=== PATIENT | male | born 1960 | race Caucasian/White ===

== ENCOUNTER 2018-11-21 09:06 | Emergency (ER) | payer MEDICAID ==
[~2018-11-21] VITALS: Ht 185.4 cm; Wt 108.9 kg
[2018-11-21] MEDS ORDERED: FUROSEMIDE 20 MG/2 ML VIAL IVP ONE (09:30)
[2018-11-21] MEDS ORDERED: CEFTRIAXONE 2 G in IV DEXTROSE 5% 100 ML IV ONE (09:30)
[2018-11-21] MEDS ORDERED: FURO40TA5 PO (09:33)
[2018-11-21] MEDS ORDERED: LISI-603 PO (09:33)
[2018-11-21] MEDS ORDERED: TRIA1CAP6 PO (09:33)
[2018-11-21] MEDS ORDERED: ALBU8.5H8 INH (09:33)
[2018-11-21] MEDS ORDERED: POTA20TA10 PO (09:33)
[2018-11-21] MEDS ORDERED: CEFTRIAXONE 1 G VIAL ONE (09:41)
[2018-11-21] MEDS ORDERED: FUROSEMIDE 40 MG/4 ML VIAL ONE (09:42)
[2018-11-21 09:48] LABS: CREATININE 0.9 mg/dL (0.6-1.3); POTASSIUM 3.8 mmol/L (3.5-5.1)
[2018-11-21 09:51] LABS: HEMOGLOBIN 12.2 g/dL (12.5-16.3); RED BLOOD CELL COUNT(AUTO) 4.09 MIL/uL (4.06-5.63); WHITE BLOOD COUNT (AUTO) 6.1 K/uL (3.6-10.2)
[2018-11-21 09:52] LABS: BASOPHILS # (AUTO) 0.1 K/uL (0.0-8.0); EOSINOPHILS # (AUTO) 0.2 K/uL (0.0-0.7); EOSINOPHILS % (AUTO) 3.3 % (0.0-7.0); HEMATOCRIT 36.5 % (36.7-47.1); LYMPHOCYTES # (AUTO) 1.8 K/uL (20.0-40.0); LYMPHOCYTES % (AUTO) 29.1 % (20.5-51.5); MEAN CORPUSCULAR HEMOGLOBIN 29.7 uug (23.8-33.4); MEAN CORPUSCULAR HGB CONC 33 g/dL (32.5-36.3); MEAN CORPUSCULAR VOLUME 89.3 fL (73.0-96.2); MONOCYTES # (AUTO) 0.6 K/uL (2.0-10.0); MONOCYTES % (AUTO) 10.2 % (0.0-11.0); NEUTROPHILS # (AUTO) 3.5 K/uL (1.8-8.9); NEUTROPHILS % (AUTO) 56.4 % (38.5-71.5); PLATELET COUNT (AUTO) 272 K/uL (152-348)
--- NOTE | 2018-11-21 10:36 | NUR ---
Patient discharged to home in stable conditon. Written and verbal after care instructions given. Patient verbalizes understanding of instructions.pt walks in steady gait.
[2018-11-21 11:16] VITALS: BP 164/89
== END 2018-11-21 11:17 | disposition home or self-care (01) ==
LOC: ER 09:06
DX: L03.115 Cellulitis of right lower limb (principal); L03.116 Cellulitis of left lower limb; I89.0 Lymphedema, not elsewhere classified; I11.0 Hypertensive heart disease with heart failure; I50.9 Heart failure, unspecified; I25.10 Atherosclerotic heart disease of native coronary artery without angina pectoris; J44.9 Chronic obstructive pulmonary disease, unspecified; F17.200 Nicotine dependence, unspecified, uncomplicated; Z79.899 Other long term (current) drug therapy
CPT/HCPCS: 36415; 71045; 80048; 83880; 84484; 85025; 93005; 96365; 96375; 99284; J0696; J1940; J7060; 70030-TC; A4663

== ENCOUNTER 2019-04-22 22:48 | Inpatient (IN) | payer MEDICAID ==
[~2019-04-22] VITALS: Ht 188 cm; Wt 117.9 kg
[~2019-04-22 22:48] MED LIST: ALBU8.5H8 INH; FURO40TA5 PO; LISI-603 PO; POTA20TA10 PO; TRIA1CAP6 PO
[2019-04-22] MEDS ORDERED: FUROSEMIDE 20 MG TABLET ONE (23:15)
[2019-04-22] MEDS ORDERED: predniSONE 20 MG TABLET ONE (23:15)
[2019-04-22] MEDS ORDERED: predniSONE 10 MG TABLET PO ONE (23:15)
[2019-04-22] MEDS ORDERED: HYDROCODONE/APAP 10-325 MG TABLET PO ONE (23:15)
[2019-04-22] MEDS ORDERED: ALBUTEROL SULFATE 2.5 MG/3 ML NEBU NEB ONE (23:15)
[2019-04-22] MEDS ORDERED: HYDROCODONE/APAP 10-325 MG TABLET ONE (23:15)
[2019-04-22] MEDS ORDERED: FUROSEMIDE 20 MG TABLET PO ONE (23:15)
[2019-04-22] MEDS ORDERED: IPRATROPIUM BROMIDE 0.5 MG/2.5 ML NEBU NEB ONE (23:15)
[2019-04-22] MEDS ORDERED: ALBUTEROL SULFATE 2.5 MG/3 ML NEBU ONE (23:23)
[2019-04-22] MEDS ORDERED: IPRATROPIUM BROMIDE 0.5 MG/2.5 ML NEBU ONE (23:23)
[2019-04-22 23:39] LABS: BASOPHILS # (AUTO) 0.1 K/uL (0.0-8.0); BASOPHILS % (AUTO) 0.6 % (0.0-2.0); EOSINOPHILS % (AUTO) 0.3 % (0.0-7.0); HEMATOCRIT 41.4 % (36.7-47.1); HEMOGLOBIN 13.3 g/dL (12.5-16.3); LYMPHOCYTES # (AUTO) 1.3 K/uL (20.0-40.0); LYMPHOCYTES % (AUTO) 10.5 % (20.5-51.5); MEAN CORPUSCULAR HEMOGLOBIN 28.4 uug (23.8-33.4); MEAN CORPUSCULAR HGB CONC 32 g/dL (32.5-36.3); MEAN CORPUSCULAR VOLUME 88.1 fL (73.0-96.2); MONOCYTES # (AUTO) 1.4 K/uL (2.0-10.0); MONOCYTES % (AUTO) 11.1 % (0.0-11.0); NEUTROPHILS # (AUTO) 9.5 K/uL (1.8-8.9); NEUTROPHILS % (AUTO) 77.5 % (38.5-71.5); PLATELET COUNT (AUTO) 243 K/uL (152-348); WHITE BLOOD COUNT (AUTO) 12.2 K/uL (3.6-10.2)
[2019-04-22 23:52] LABS: CREATININE 0.9 mg/dL (0.6-1.3); POTASSIUM 3.9 mmol/L (3.5-5.1)
[2019-04-23] MEDS ORDERED: PENICILLIN G BENZATHINE 2.4 MMU/4 ML DISP.SYRIN IM ONE ×2 (00:01)
[2019-04-23 00:05] LABS: BILIRUBIN,DIRECT 0.2 mg/dL (0.0-0.2); BILIRUBIN,TOTAL 0.8 mg/dL (0.2-1.0); TOTAL PROTEIN, SERUM 6.7 g/dL (6.4-8.2)
[2019-04-23] MEDS ORDERED: IOHEXOL 350 100 ML INFUS..BTL ONE (00:14)
[2019-04-23] MEDS ORDERED: IV NORMAL SALINE 250 ML IV ONE (00:14)
[2019-04-23] MEDS ORDERED: SWABABLE VALVE TRANSFER SET EA MC ONE (00:15)
[2019-04-23] MEDS ORDERED: NITROGLYCERIN OINT 1 GM PACKET TP ONE ×2 (00:30→01:02)
[2019-04-23] MEDS ORDERED: ASPIRIN 81 MG TAB.CHEW PO ONE (00:30)
--- NOTE | 2019-04-23 00:44 | NUR ---
Dr. Schneider spoke with Yury Carlisle on telephone. Pt. admitted to Telemetry, under care of Yury Carlisle DNP. Belongs List completed.
[2019-04-23] MEDS ORDERED: ASPIRIN 81 MG TAB.CHEW ONE (01:02)
--- NOTE | 2019-04-23 01:25 | NUR ---
Report given to inpatient nurse.
[2019-04-23 02:00] VITALS: BP 139/80
[2019-04-23] MEDS ORDERED: Z GUARD REMEDY PASTE 57 GM TUBE TOP PRN (02:00)
[2019-04-23] MEDS ORDERED: ONDANSETRON 4 MG/2 ML VIAL IV PRN (02:00)
[2019-04-23] MEDS ORDERED: MAGNESIUM HYDROXIDE 30 ML LIQUID UDC PO PRN (02:00)
--- NOTE | 2019-04-23 04:48 | NUR ---
report received from ER. belongings list completed and signed. admissions process complete. v/s stable and and no signs of acute distress throughout shift. safety and comfort measures provided. bed in lowest position, side rails upx2, bed alarm on. will continue to monitor and endorse accordingly to morning nurse.
[2019-04-23 04:57] VITALS: BP 151/87
[2019-04-23] MEDS: HYDROCODONE/APAP 5-325MG TABLET PO PRN ×3 (06:34→23:05)
--- NOTE | 2019-04-23 06:37 | NUR ---
Dr. Carlisle contacted for updated status reported from patient regarding current substance abuse withdrawal. no new orders at this time. patient is NSR on tele. v/s stable. o2 sat 93% on 4L NC. will continue to monitor. norco administered for c/o of pain and tolerated well.
[2019-04-23] MEDS: predniSONE 20 MG TABLET PO SCH (08:11)
[2019-04-23] MEDS: ASPIRIN EC 81 MG TABLET.DR PO SCH (08:11)
[2019-04-23] MEDS: ENOXAPARIN SODIUM 40 MG/0.4 ML DISP.SYRIN SQ SCH (08:13)
[2019-04-23] MEDS: NICOTINE 14 MG/24HR PATCH TD SCH (08:13)
[2019-04-23] MEDS ORDERED: FUROSEMIDE 40 MG/4 ML VIAL IV SCH (09:00)
[2019-04-23] MEDS: CARVEDILOL 6.25 MG TABLET PO SCH ×2 (13:26→18:44)
--- NOTE | 2019-04-23 13:47 | NUR ---
Clinical Pharmacy Note: Vancomycin Dosing per Pharmacy Subjective: Vancomycin IV to start on this 58 yo male patient for cellulitis Objective: BUN 15/Scr 0.9 WBC 12.2 Temperature 98.1 ht 188 cm wt 122 kg Assessment/Plan: Will start vancomycin 2000mg IVPB Q11hr for a predicted vancomycin steady state trough level of 16 mcg/ml. 1st dose today at 1500. Will draw a vancomycin trough level prior to the 4th dose of vancomycin (not ordered yet). Will monitor renal function and adjust vancomycin dose, if needed, should renal function change significantly. Will follow daily.
[2019-04-23 13:49] LABS: CREATININE 0.8 mg/dL (0.6-1.3); MAGNESIUM 1.7 mg/dL (1.8-2.4); POTASSIUM 3.4 mmol/L (3.5-5.1)
[2019-04-23] MEDS ORDERED: ENOXAPARIN SODIUM 40 MG/0.4 ML DISP.SYRIN SQ SCH (14:15)
[2019-04-23] MEDS ORDERED: METHADONE HCL 10 MG TABLET PO SCH (14:15)
[2019-04-23] MEDS: METHADONE HCL 10 MG TABLET PO SCH (15:42)
[2019-04-23] MEDS: VANCOMYCIN IV 2,000 MG in IV DEXTROSE 5% 500 ML IV SCH (15:42)
--- NOTE | 2019-04-23 17:47 | NUR ---
Patient in bed with signs of discomfort as he admitted to with heroine withdraw to night time nurse; patient will continue to be monitored.
--- NOTE | 2019-04-23 18:16 | NUR ---
Patient with discomfort through out shift due to expressing going through heroine withdraw; Md placed orders for methadone for withdraw symptoms; patient medication compliant ; patient with stable vital signs. Report given oncoming nurse.
--- NOTE | 2019-04-23 19:30 | NUR ---
RECEIVED PT AWAKE, ALERT AND ORIENTEDX3. PT SHOWS N SIGNS OF ACUTE DISTRESS. IV INTACT. SAFETY AND COMFORT PROVIDED. WILL CONTINUE TO MONITOR.
[2019-04-23 20:00] VITALS: BP 148/89
[2019-04-23] MEDS: ACETAMINOPHEN 325 MG TABLET PO PRN (20:10)
[2019-04-23] MEDS: ATORVASTATIN 40 MG TABLET PO SCH (20:10)
[2019-04-23] MEDS: ALBUTEROL SULFATE 2.5 MG/3 ML NEBU NEB PRN (22:47)
[2019-04-23] MEDS: IPRATROPIUM BROMIDE 0.5 MG/2.5 ML NEBU NEB PRN (22:47)
[2019-04-23] MEDS ORDERED: LORAZEPAM 2 MG/1 ML VIAL IV PRN (23:45)
[2019-04-24 00:04] VITALS: BP 142/75
[2019-04-24] MEDS: VANCOMYCIN IV 2,000 MG in IV DEXTROSE 5% 500 ML IV SCH ×2 (01:02→13:48)
[2019-04-24 04:54] VITALS: BP 151/82
[2019-04-24 06:47] LABS: BILIRUBIN,TOTAL 0.5 mg/dL (0.2-1.0); CREATININE 0.7 mg/dL (0.6-1.3); PHOSPHOROUS 3.7 mg/dL (2.5-4.9); POTASSIUM 3.6 mmol/L (3.5-5.1)
[2019-04-24 06:52] LABS: BASOPHILS % (AUTO) 0.3 % (0.0-2.0); EOSINOPHILS % (AUTO) 0.4 % (0.0-7.0); HEMATOCRIT 43.3 % (36.7-47.1); HEMOGLOBIN 13.9 g/dL (12.5-16.3); LYMPHOCYTES # (AUTO) 1.3 K/uL (20.0-40.0); MEAN CORPUSCULAR HEMOGLOBIN 28.4 uug (23.8-33.4); MEAN CORPUSCULAR HGB CONC 32 g/dL (32.5-36.3); MEAN CORPUSCULAR VOLUME 88.7 fL (73.0-96.2); MONOCYTES # (AUTO) 1.2 K/uL (2.0-10.0); MONOCYTES % (AUTO) 10.7 % (0.0-11.0); NEUTROPHILS # (AUTO) 8.9 K/uL (1.8-8.9); NEUTROPHILS % (AUTO) 77.6 % (38.5-71.5); PLATELET COUNT (AUTO) 270 K/uL (152-348); RED BLOOD CELL COUNT(AUTO) 4.89 MIL/uL (4.06-5.63); WHITE BLOOD COUNT (AUTO) 11.4 K/uL (3.6-10.2)
[2019-04-24 06:55] LABS: THYROID STIMULATING HORMONE 1.01 mIU/mL (0.358-3.740)
--- NOTE | 2019-04-24 07:12 | NUR ---
2341H [employer] ORDERED ATIVAN 1MG ONETIME PRN FOR PT. PT AGITATED, SCREAMING AND WAS RESTLESS. PT SLEPT INTERMITTENTLY. PT SHOWS NO SIGNS OF RESPIRATORY DISTRESS. PT IV INTACT. SAFETY AND COMFORT PROVIDED. WILL ENDORSE TO INCOMING NURSE FOR CONTINUITY OF CARE.
--- NOTE | 2019-04-24 07:30 | NUR ---
Patient mildly agitated ;b patient otherwise stable ; patient will continue to be monitored.
--- NOTE | 2019-04-24 07:43 | NUR ---
Clinical Pharmacy Note: Vancomycin Dosing per Pharmacy Subjective: Vancomycin IV to continue on this 58 yo male patient for cellulitis Objective: BUN 20/Scr 0.7 WBC 11.4 Temperature 98.4 ht 188 cm wt 122 kg Assessment/Plan: Will continue same dose of vancomycin 2000mg IVPB Q11hr for a predicted vancomycin steady state trough level of 16 mcg/ml. 3rd dose today at 1300. Will draw a vancomycin trough level prior to the 4th dose of vancomycin (ordered for today at 2330- Rn has been informed to hold midnight dose if vanco trough level above 20 mcg/ml). Pharmacy shall review the level in am & adjust the dose if needed. Will follow daily.
[2019-04-24] MEDS: ASPIRIN EC 81 MG TABLET.DR PO SCH (08:15)
[2019-04-24] MEDS: CARVEDILOL 6.25 MG TABLET PO SCH ×2 (08:16→17:31)
[2019-04-24] MEDS: METHADONE HCL 10 MG TABLET PO SCH (08:17)
[2019-04-24] MEDS: predniSONE 20 MG TABLET PO SCH (08:18)
[2019-04-24] MEDS: ENOXAPARIN SODIUM 40 MG/0.4 ML DISP.SYRIN SQ SCH (08:19)
[2019-04-24] MEDS: NICOTINE 14 MG/24HR PATCH TD SCH (08:20)
[2019-04-24] MEDS ORDERED: FUROSEMIDE 40 MG TABLET PO SCH (09:00)
[2019-04-24] MEDS ORDERED: FUROSEMIDE 40 MG/4 ML VIAL IV SCH (09:00)
[2019-04-24] MEDS: POTASSIUM CHLORIDE 50 ML IV SCH ×2 (09:53→11:46)
[2019-04-24] MEDS: LOSARTAN POTASSIUM 50 MG TABLET PO SCH (09:54)
[2019-04-24 16:31] LABS: *BILIRUBIN,URIN NEGATIVE (NEGATIVE); *CLARITY,URINE CLEAR (CLEAR); *COLOR,URINE YELLOW (YELLOW); *KETONES,URINE NEGATIVE (NEGATIVE); *UROBILINOGEN,URINE 0.2 E.U./dl (NORMAL); LEUKOCYTE ESTERASE ,URINE NEGATIVE (NEGATIVE); NITRITE, URINE NEGATIVE (NEGATIVE); UGLUCOSE NEGATIVE (NEGATIVE)
[2019-04-24 16:36] LABS: *BLOOD, URINE TRACE (NEGATIVE)
[2019-04-24 16:49] LABS: BACTERIA,URINE NONE SEEN /HPF (NONE SEEN); SQUAMOUS EPITHELIAL CELL,UR FEW /HPF (NONE SEEN); WBC,URINE 0-3 /HPF (0-3)
--- NOTE | 2019-04-24 18:43 | NUR ---
Patient with random bouts of agitation through out shift ; patient medication compliant ; Patient redirected through out shift; patient with compliants of "feeling like he is dying". Life vest office machines sales representative visited patient; Report given to oncoming nurse.
[2019-04-24 20:21] VITALS: BP 164/111
[2019-04-24] MEDS: FUROSEMIDE 40 MG/4 ML VIAL IV SCH (20:29)
[2019-04-24] MEDS: ATORVASTATIN 40 MG TABLET PO SCH (20:29)
--- NOTE | 2019-04-24 20:30 | NUR ---
Patient frequently wets himself with urine because of Lasix injection every 12 hours, spoke with Russ Gonzalez NP who ordered to place condom catheter on patient.
[2019-04-24] MEDS: LORAZEPAM 2 MG/1 ML VIAL IV PRN (20:59)
[2019-04-25 00:09] VITALS: BP 164/106
--- NOTE | 2019-04-25 00:20 | NUR ---
Telephone call to Dr Teague, informed of patient current BP 164/106. History given. Dr Teague with order to start patient on Hydralazine 25mg PO q3 hours PRN for SBP greater than 150. Order read back and verified. Will carry out order.
[2019-04-25] MEDS: VANCOMYCIN IV 2,000 MG in IV DEXTROSE 5% 500 ML IV SCH ×3 (00:27→21:04)
[2019-04-25] MEDS: hydrALAZINE HCL 25 MG TABLET PO PRN ×2 (00:38→04:07)
[2019-04-25] MEDS: ZOLPIDEM 5 MG TABLET PO PRN (00:38)
[2019-04-25] MEDS: ALBUTEROL SULFATE 2.5 MG/3 ML NEBU NEB PRN (01:37)
[2019-04-25] MEDS: IPRATROPIUM BROMIDE 0.5 MG/2.5 ML NEBU NEB PRN (01:37)
--- NOTE | 2019-04-25 02:11 | NUR ---
Started another IV line on right hand #22G as patient keeps on bending right AC area and interfering with IV flow. COntinued IB ABX on right hand IV site.
--- NOTE | 2019-04-25 03:35 | NUR ---
Patient pulled out condom catheter x2. Able to use urinal. Will keep condom catheter off.
[2019-04-25 04:03] VITALS: BP 169/110
--- NOTE | 2019-04-25 04:32 | NUR ---
Pulled out IV on right hand. Right AC IV remains intact.
--- NOTE | 2019-04-25 05:53 | NUR ---
Patient asleep at this time. On O2 at 2LPM via NC in place. O2 sat at 97%. NSR on tele at 88/min, with frequent multiform PVC. Had episode V tach 6 beat non sustaining x3 the whole shift. IV site on right AC intact and patent. No adverse reaction noted from IV ABX. Safety measure maintained and call valdivia within reach.
[2019-04-25 06:30] LABS: CREATININE 0.8 mg/dL (0.6-1.3); POTASSIUM 3.3 mmol/L (3.5-5.1)
[2019-04-25 06:31] LABS: MAGNESIUM 1.8 mg/dL (1.8-2.4); PHOSPHOROUS 3.9 mg/dL (2.5-4.9)
[2019-04-25 06:34] LABS: BASOPHILS % (AUTO) 0.3 % (0.0-2.0); EOSINOPHILS # (AUTO) 0.1 K/uL (0.0-0.7); EOSINOPHILS % (AUTO) 0.5 % (0.0-7.0); HEMATOCRIT 44.2 % (36.7-47.1); HEMOGLOBIN 14.3 g/dL (12.5-16.3); LYMPHOCYTES # (AUTO) 1.3 K/uL (20.0-40.0); LYMPHOCYTES % (AUTO) 11.9 % (20.5-51.5); MEAN CORPUSCULAR HEMOGLOBIN 28.1 uug (23.8-33.4); MEAN CORPUSCULAR HGB CONC 33 g/dL (32.5-36.3); MEAN CORPUSCULAR VOLUME 86.5 fL (73.0-96.2); MONOCYTES # (AUTO) 1.2 K/uL (2.0-10.0); NEUTROPHILS # (AUTO) 8.7 K/uL (1.8-8.9); NEUTROPHILS % (AUTO) 76.3 % (38.5-71.5); PLATELET COUNT (AUTO) 338 K/uL (152-348); WHITE BLOOD COUNT (AUTO) 11.3 K/uL (3.6-10.2)
--- NOTE | 2019-04-25 06:44 | NUR ---
Telephone call from medical lab technologist Bhavesh, reported critical CO2 of 40. Will notify MD and have day shift RN follow up.
--- NOTE | 2019-04-25 08:00 | NUR ---
received alert and oriented x 3, states wants something for pain and wants to sleep, feels tired, placed on 1.5 L/nc 02, tele- SR with PVCs, explained plan of care- verbalized understanding, took routine meds without any problem, call light within reach, safety measures maintained
[2019-04-25] MEDS: ASPIRIN EC 81 MG TABLET.DR PO SCH (08:07)
[2019-04-25] MEDS: LOSARTAN POTASSIUM 50 MG TABLET PO SCH ×2 (08:08→17:08)
[2019-04-25] MEDS: NICOTINE 14 MG/24HR PATCH TD SCH (08:08)
[2019-04-25] MEDS: METHADONE HCL 10 MG TABLET PO SCH (08:08)
[2019-04-25] MEDS: ENOXAPARIN SODIUM 40 MG/0.4 ML DISP.SYRIN SQ SCH (08:09)
[2019-04-25] MEDS: FUROSEMIDE 40 MG/4 ML VIAL IV SCH (08:10)
[2019-04-25] MEDS: predniSONE 20 MG TABLET PO SCH (08:10)
[2019-04-25] MEDS: CARVEDILOL 6.25 MG TABLET PO SCH (08:11)
--- NOTE | 2019-04-25 09:28 | NUR ---
Clinical Pharmacy Note: Vancomycin Dosing per Pharmacy Subjective: Vancomycin IV to continue on this 58 yo male patient for cellulitis Objective: BUN 19/Scr 0.8 WBC 11.3 Temperature 98.6 Vanco trough level; 15.9 (on 03/25 at 2330) ht 188 cm wt 122 kg Assessment/Plan: Since vanco trough level is within therapeutic range, will continue same dose of vancomycin 2000mg IVPB Q11hr for today. Will monitor renal function & adjust the dose if needed. Will follow daily.
[2019-04-25] MEDS ORDERED: POTASSIUM CHLORIDE 20 MEQ TAB.PRT.SR PO ONE (11:15)
[2019-04-25 12:00] VITALS: BP 150/98
[2019-04-25 12:10] LABS: ABG HCO3 39.5 mmol/L; ABG PCO2 62.1 mmHg (35.0-45.0); ABG PH 7.421 (7.350-7.450); ABG PO2 65.7 mmHg (75.0-100.0); ABG SITE LEFT RADIAL; ABG TOTAL HEMOGLOBIN 15.3 G/dL (13.5-18.0); COHb 1.8 % (0.5-1.5); MetHb 0.2 % (0.0-1.5); O2Hb 91.3 % (94.0-97.0); VENT MODE Nasal Cannula
--- NOTE | 2019-04-25 15:24 | NUR ---
PATIENT REFUSED BI-PAP, PLACED ON 2L NC BY RT SATURATING 95%. NO ACUTE DISTRESS, SR WITH MULTIPLE PVCS. NO RUNS OF V-TACH SINCE CHANGE OF SHIFT
[2019-04-25] MEDS ORDERED: POTASSIUM CHLORIDE 20 MEQ TAB.PRT.SR PO SCH (16:30)
[2019-04-25 16:46] VITALS: BP 152/72
[2019-04-25] MEDS: CARVEDILOL 12.5 MG TABLET PO SCH (17:07)
[2019-04-25] MEDS: BUMETANIDE 1 MG TABLET PO SCH (17:07)
[2019-04-25] MEDS ORDERED: CARVEDILOL 6.25 MG TABLET PO SCH (18:00)
[2019-04-25 20:00] VITALS: BP 136/82
--- NOTE | 2019-04-25 20:00 | NUR ---
Received patient lying in bed. AAOx2-3. Able to make needs known. Denies any SOB. On o2 at 2LPM via NC in place. Per day shift patient taking off BIPAP when being placed. BIPAP off at this time. O2 sat at 95%. NSR on tele with frequent PVC's and had 1 episode of V tach 4 beats but non sustaining. IV site on right AC intact and patent. Complained of generalized pain. Will provide [place] per order. Reposition for comfort. Continue to monitor.
[2019-04-25] MEDS: ATORVASTATIN 40 MG TABLET PO SCH (20:28)
[2019-04-25] MEDS: HYDROCODONE/APAP 5-325MG TABLET PO PRN (20:28)
[2019-04-25 20:31] VITALS: BP 138/82
--- NOTE | 2019-04-25 21:30 | NUR ---
RT place patient on BIPAP with setting of 14, 10/5, 30%. Patient unable to tolerate 14/5 per RT Tate.
[2019-04-26] VITALS (10 sets, daily range): BP systolic 141–185; BP diastolic 81–109
--- NOTE | 2019-04-26 | NUR ---
Patient woke up from sleep and started getting anxious removed his BIPAP and refusing to have it put back on. Will give Lorazepam per order for anxiety. We'll leave of BIPAP at this time as patient continue to refuse it. On O2 at 2LPM via NC in place. O2 sat at 96% at this time.
[2019-04-26] MEDS: LORAZEPAM 2 MG/1 ML VIAL IV PRN (00:04)
[2019-04-26] MEDS: hydrALAZINE HCL 25 MG TABLET PO PRN (03:56)
--- NOTE | 2019-04-26 05:45 | NUR ---
BP down from 185/109 to 156/82.
--- NOTE | 2019-04-26 06:05 | NUR ---
AAOx2-3. Denies any SOB. On o2 at 2LPM via NC in place. O2 sat at 95%. Kept BIPAP for about 2.5 hours during the night. NSR on tele at 87/min with frequent multiform PVC's and occasional PAC's. IV site on right AC intact and patent.Safety measure maintained and call valdivia within reached.
[2019-04-26 06:32] LABS: BASOPHILS % (AUTO) 0.5 % (0.0-2.0); EOSINOPHILS # (AUTO) 0.1 K/uL (0.0-0.7); EOSINOPHILS % (AUTO) 1.4 % (0.0-7.0); LYMPHOCYTES # (AUTO) 1.8 K/uL (20.0-40.0); LYMPHOCYTES % (AUTO) 18.1 % (20.5-51.5); MEAN CORPUSCULAR HEMOGLOBIN 28.6 uug (23.8-33.4); MEAN CORPUSCULAR HGB CONC 33 g/dL (32.5-36.3); MEAN CORPUSCULAR VOLUME 87.6 fL (73.0-96.2); MONOCYTES # (AUTO) 1.4 K/uL (2.0-10.0); MONOCYTES % (AUTO) 14.3 % (0.0-11.0); NEUTROPHILS # (AUTO) 6.6 K/uL (1.8-8.9); NEUTROPHILS % (AUTO) 65.7 % (38.5-71.5); PLATELET COUNT (AUTO) 303 K/uL (152-348); RED BLOOD CELL COUNT(AUTO) 5.25 MIL/uL (4.06-5.63); WHITE BLOOD COUNT (AUTO) 10.1 K/uL (3.6-10.2)
[2019-04-26 06:37] LABS: CREATININE 0.7 mg/dL (0.6-1.3); MAGNESIUM 1.7 mg/dL (1.8-2.4); PHOSPHOROUS 3.9 mg/dL (2.5-4.9); POTASSIUM 2.9 mmol/L (3.5-5.1)
[2019-04-26] MEDS: CARVEDILOL 12.5 MG TABLET PO SCH ×2 (06:45→16:49)
--- NOTE | 2019-04-26 07:30 | NUR ---
SBAR REPORT RECEIVED, PT.SLEEPY, NO S/S OF ACUTE DISTRESS.
[2019-04-26] MEDS ORDERED: POTASSIUM CHLORIDE 20 MEQ TAB.PRT.SR PO ONE (08:00)
[2019-04-26 08:02] LABS: ABG BASE EXCESS 8.3 mmol/L; ABG HCO3 34.5 mmol/L; ABG PCO2 53.6 mmHg (35.0-45.0); ABG PH 7.427 (7.350-7.450); ABG PO2 60.1 mmHg (75.0-100.0); ABG SITE RIGHT RADIAL; ABG TOTAL HEMOGLOBIN 15.5 G/dL (13.5-18.0); COHb 1.9 % (0.5-1.5); MetHb 0.3 % (0.0-1.5); O2Hb 88.7 % (94.0-97.0); VENT MODE Nasal Cannula 1L
[2019-04-26] MEDS: predniSONE 20 MG TABLET PO SCH (08:22)
[2019-04-26] MEDS: BUMETANIDE 1 MG TABLET PO SCH ×2 (08:23→16:06)
[2019-04-26] MEDS: LOSARTAN POTASSIUM 50 MG TABLET PO SCH ×2 (08:23→16:06)
[2019-04-26] MEDS: METHADONE HCL 10 MG TABLET PO SCH (08:23)
[2019-04-26] MEDS: NICOTINE 14 MG/24HR PATCH TD SCH (08:24)
[2019-04-26] MEDS: ASPIRIN EC 81 MG TABLET.DR PO SCH (08:24)
[2019-04-26] MEDS: ENOXAPARIN SODIUM 40 MG/0.4 ML DISP.SYRIN SQ SCH (08:25)
[2019-04-26] MEDS: VANCOMYCIN IV 2,000 MG in IV DEXTROSE 5% 500 ML IV SCH ×2 (08:36→20:04)
--- NOTE | 2019-04-26 09:00 | NUR ---
Clinical Pharmacy Note: Vancomycin Dosing per Pharmacy Subjective: Vancomycin IV to continue on this 58 yo male patient for cellulitis Objective: BUN 16/Scr 0.7 WBC 10.1 Temperature 98.4 Vanco trough level; 15.9 (on 03/25 at 2330) ht 188 cm wt 122 kg Assessment/Plan: As trough was in range and renal function has not changed, will continue same dose of vancomycin 2000mg IVPB Q11hr for today. Will monitor renal function & adjust the dose if needed. Will follow daily.
[2019-04-26] MEDS: MAGNESIUM OXIDE 400 MG TABLET PO SCH ×2 (10:27→16:06)
[2019-04-26] MEDS ORDERED: IBUPROFEN 400 MG TABLET PO PRN (10:30)
[2019-04-26] MEDS: MAGNESIUM SULFATE/D5W 100 ML IV SCH ×2 (10:45→11:50)
[2019-04-26] MEDS: POTASSIUM CHLORIDE 20 MEQ TAB.PRT.SR PO SCH ×2 (15:27→20:02)
--- NOTE | 2019-04-26 15:37 | NUR ---
PT.STATED THAT ALL HIS BELONGING,WAS LEFT IN HOTEL,REQUESTED TO TALK TO SOC.WORKER. IDRIS Chappell WAS NOTIFIED.
--- NOTE | 2019-04-26 17:30 | NUR ---
Pt.uncooperative,verbally abusive ,demanding that need right now some one to go to picker box operator his belongings from hotel.
--- NOTE | 2019-04-26 18:30 | NUR ---
Pt.on the phone,no s/s of distress.
--- NOTE | 2019-04-26 19:25 | NUR ---
RT and GRADE SETTER found patient lying down on the floor facing down in his room and reported to hand sign writer. ROM done to all extremities and is WNL. No apparent injury sustained. Patient assisted back to bed. Remains AAOx3. In no acute distress. VS WNL. Continue to monitor. AMMON Fuller made aware with no new order given. Residential Substance Abuse Counselor Ivett notified.
--- NOTE | 2019-04-26 20:00 | NUR ---
AAOx3. Able to make needs known. Denies any SOB. On O2 at 2LPM via NC in place. O2 sat at 94%. NSR on tele at 67/min. IV site on right AC intact and patent. Continue to monitor.
[2019-04-26] MEDS: ATORVASTATIN 40 MG TABLET PO SCH (20:02)
[2019-04-26] MEDS: AMLODIPINE 5 MG TABLET PO SCH (20:04)
[2019-04-26] MEDS: HYDROCODONE/APAP 5-325MG TABLET PO PRN (21:56)
--- NOTE | 2019-04-26 23:10 | NUR ---
RT placed BIPAP on patient with settings of 14, 14/5, FIo2 30%.
[2019-04-27] VITALS (8 sets, daily range): BP systolic 120–150; BP diastolic 75–97
[2019-04-27 05:30] LABS: ABG BASE EXCESS 11.3 mmol/L; ABG HCO3 37.8 mmol/L; ABG PCO2 55.7 mmHg (35.0-45.0); ABG PH 7.449 (7.350-7.450); ABG PO2 62.7 mmHg (75.0-100.0); ABG SITE LEFT BRACHIAL; ABG TOTAL HEMOGLOBIN 15.4 G/dL (13.5-18.0); COHb 1.8 % (0.5-1.5); MetHb 0.2 % (0.0-1.5); VENT MODE Nasal Cannula
[2019-04-27] MEDS: VANCOMYCIN IV 2,000 MG in IV DEXTROSE 5% 500 ML IV SCH ×2 (06:00→17:44)
--- NOTE | 2019-04-27 06:11 | NUR ---
AAOx3. Denies any SOB. On O2 at 2LPM via NC in place. O2 sat at 95%. Kept BIPAP for about 4 hours during the night. NSR on tele at 79/min with occasional PVC's, 1 episode of 4 beats VT. IV site on right AC intact and patent. IV site on right AC remains intac and patent. No adverse effect noted from IV ABX. Safety measure maintained and call valdivia within reached.
[2019-04-27 06:32] LABS: BASOPHILS # (AUTO) 0.1 K/uL (0.0-8.0); BASOPHILS % (AUTO) 0.7 % (0.0-2.0); EOSINOPHILS # (AUTO) 0.2 K/uL (0.0-0.7); EOSINOPHILS % (AUTO) 1.9 % (0.0-7.0); HEMATOCRIT 44.9 % (36.7-47.1); HEMOGLOBIN 14.7 g/dL (12.5-16.3); LYMPHOCYTES # (AUTO) 2.2 K/uL (20.0-40.0); LYMPHOCYTES % (AUTO) 25.6 % (20.5-51.5); MEAN CORPUSCULAR HGB CONC 33 g/dL (32.5-36.3); MEAN CORPUSCULAR VOLUME 85.8 fL (73.0-96.2); MONOCYTES # (AUTO) 1.3 K/uL (2.0-10.0); MONOCYTES % (AUTO) 15.4 % (0.0-11.0); NEUTROPHILS # (AUTO) 4.9 K/uL (1.8-8.9); NEUTROPHILS % (AUTO) 56.4 % (38.5-71.5); PLATELET COUNT (AUTO) 327 K/uL (152-348); RED BLOOD CELL COUNT(AUTO) 5.23 MIL/uL (4.06-5.63); WHITE BLOOD COUNT (AUTO) 8.7 K/uL (3.6-10.2)
[2019-04-27 06:42] LABS: CREATININE 0.7 mg/dL (0.6-1.3); PHOSPHOROUS 3.5 mg/dL (2.5-4.9); POTASSIUM 3.1 mmol/L (3.5-5.1)
--- NOTE | 2019-04-27 07:00 | NUR ---
Received patient in Bed, awake and verbally responsive. No signs of distress. No SOB. No complain of Pain or discomfort. Vancomycin IV infusing on Right AC, No signs of Infiltration noted. No signs of Adverse Reaction noted. will continue to monitor.
[2019-04-27] MEDS: predniSONE 20 MG TABLET PO SCH (07:51)
[2019-04-27] MEDS: CARVEDILOL 12.5 MG TABLET PO SCH ×2 (07:51→17:52)
[2019-04-27] MEDS: AMLODIPINE 5 MG TABLET PO SCH ×2 (08:29→20:08)
[2019-04-27] MEDS: ASPIRIN EC 81 MG TABLET.DR PO SCH (08:30)
[2019-04-27] MEDS: LOSARTAN POTASSIUM 50 MG TABLET PO SCH ×2 (08:30→16:37)
[2019-04-27] MEDS: BUMETANIDE 1 MG TABLET PO SCH ×2 (08:30→16:37)
[2019-04-27] MEDS: POTASSIUM CHLORIDE 10 MEQ TAB.PRT.SR PO SCH ×2 (08:30→16:37)
[2019-04-27] MEDS: NICOTINE 14 MG/24HR PATCH TD SCH (08:30)
[2019-04-27] MEDS: METHADONE HCL 10 MG TABLET PO SCH (08:30)
[2019-04-27] MEDS: ENOXAPARIN SODIUM 40 MG/0.4 ML DISP.SYRIN SQ SCH (08:35)
[2019-04-27 08:51] LABS: EOSINOPHILS % (MANUAL) 2 % (0-8); LYMPHOCYTES % (MANUAL) 23 % (20-40); MONOCYTES % (MANUAL) 16 % (2-10); NEUTROPHILS % (MANUAL) 59 % (42-75)
[2019-04-27] MEDS ORDERED: POTASSIUM CHLORIDE 20 MEQ POWDER PACKET PO ONE (09:45)
[2019-04-27] MEDS: POTASSIUM CHLORIDE 20 MEQ POWDER PACKET PO SCH ×3 (10:03→14:01)
--- NOTE | 2019-04-27 13:23 | NUR ---
Clinical Pharmacy Note: Vancomycin Dosing per Pharmacy Subjective: Vancomycin IV to continue on this 58 yo male patient for cellulitis Objective: BUN 16/Scr 0.7 WBC 8.7 Temperature 99 Vanco trough level; 15.9 (on 04/25 at 2330) ht 188 cm wt 122 kg Assessment/Plan: Will continue same dose of vancomycin 2000mg IVPB Q11hr for now. Will monitor renal function & adjust the dose if needed. Will follow daily.
--- NOTE | 2019-04-27 18:14 | NUR ---
Patient in Bed, awake and verbally responsive. On Oxygen at 2L via nasal cannula. No signs of distress noted. No SOB. Saturating at 99%. Denies Chest pain/discomfort. All due medications given as ordered. Indra from [employer] life Vest came discussed the Instructions Applied the life Vest to patient, patient verbalized understanding. All due medications given as ordered. All needs attended and met. Will Endorse to Oncoming Nurse.
[2019-04-27] MEDS: ACETAMINOPHEN 325 MG TABLET PO PRN (20:06)
[2019-04-27] MEDS: ATORVASTATIN 40 MG TABLET PO SCH (20:06)
[2019-04-28] MEDS ORDERED: METHADONE HCL 10 MG TABLET PO ONE
--- NOTE | 2019-04-28 | NUR ---
PATIENT COMPLAINING OF HEROIN WITHDRAWALS , THREATENED STAFF THAT HE WOULD GET VIOLENT IF HE DID NOT RECEIVE HIS METHADONE . SPOKE TO MD COLON AND ORDERED METHADONE 10MG X1 NOW. PATIENT RECEIVED MEDICATION.
[2019-04-28] MEDS: VANCOMYCIN IV 2,000 MG in IV DEXTROSE 5% 500 ML IV SCH (05:09)
[2019-04-28 06:21] VITALS: BP 112/63
--- NOTE | 2019-04-28 06:49 | NUR ---
PATIENT WAS UNABLE TO SLEEP LAST NIGHT, IV WAS INFILTRATED , APPLIED ICE AND REINSERTED IV ON LFT WRIST. PATENT AND INTACT.IN NO ACUTE DISTRESS.STABLE. ENDORSED TO AM NURSE
[2019-04-28 07:03] LABS: CREATININE 1.1 mg/dL (0.6-1.3); MAGNESIUM 1.8 mg/dL (1.8-2.4); PHOSPHOROUS 4.2 mg/dL (2.5-4.9)
--- NOTE | 2019-04-28 07:15 | NUR ---
Received patient in Bed, awake and verbally responsive. On Oxygen at 1L/min tolerated well, saturating at 94%. breathing even and unlabored. No complain of pain or discomfort. IV Vancomycin infusing well on Left hand. No signs of Infiltration noted. kept Clean and comfortable. Will continue to monitor.
[2019-04-28 07:20] LABS: BASOPHILS # (AUTO) 0.1 K/uL (0.0-8.0); BASOPHILS % (AUTO) 0.9 % (0.0-2.0); EOSINOPHILS # (AUTO) 0.2 K/uL (0.0-0.7); EOSINOPHILS % (AUTO) 2.3 % (0.0-7.0); HEMATOCRIT 42.5 % (36.7-47.1); HEMOGLOBIN 13.9 g/dL (12.5-16.3); LYMPHOCYTES # (AUTO) 2.7 K/uL (20.0-40.0); LYMPHOCYTES % (AUTO) 29.8 % (20.5-51.5); MEAN CORPUSCULAR HEMOGLOBIN 28.3 uug (23.8-33.4); MEAN CORPUSCULAR HGB CONC 33 g/dL (32.5-36.3); MEAN CORPUSCULAR VOLUME 86.9 fL (73.0-96.2); MONOCYTES # (AUTO) 1.2 K/uL (2.0-10.0); MONOCYTES % (AUTO) 13.4 % (0.0-11.0); NEUTROPHILS # (AUTO) 4.9 K/uL (1.8-8.9); NEUTROPHILS % (AUTO) 53.6 % (38.5-71.5); PLATELET COUNT (AUTO) 304 K/uL (152-348); RED BLOOD CELL COUNT(AUTO) 4.89 MIL/uL (4.06-5.63); WHITE BLOOD COUNT (AUTO) 9.1 K/uL (3.6-10.2)
[2019-04-28 07:29] LABS: ABG HCO3 35.5 mmol/L; ABG PCO2 55.6 mmHg (35.0-45.0); ABG PH 7.423 (7.350-7.450); ABG PO2 57.9 mmHg (75.0-100.0); ABG SITE RIGHT RADIAL; ABG TOTAL HEMOGLOBIN 14.8 G/dL (13.5-18.0); COHb 1.5 % (0.5-1.5); MetHb 0.3 % (0.0-1.5); O2Hb 88.6 % (94.0-97.0); VENT MODE ROOM AIR
[2019-04-28] MEDS: CARVEDILOL 12.5 MG TABLET PO SCH ×2 (07:50→17:45)
[2019-04-28] MEDS: predniSONE 20 MG TABLET PO SCH (07:50)
[2019-04-28] MEDS: BUMETANIDE 1 MG TABLET PO SCH ×2 (08:50→16:38)
[2019-04-28] MEDS: POTASSIUM CHLORIDE 10 MEQ TAB.PRT.SR PO SCH ×2 (08:51→16:39)
[2019-04-28] MEDS: LOSARTAN POTASSIUM 50 MG TABLET PO SCH ×2 (08:51→16:39)
[2019-04-28] MEDS: METHADONE HCL 10 MG TABLET PO SCH (08:51)
[2019-04-28] MEDS: ASPIRIN EC 81 MG TABLET.DR PO SCH (08:51)
[2019-04-28] MEDS: NICOTINE 14 MG/24HR PATCH TD SCH (08:52)
[2019-04-28] MEDS: AMLODIPINE 5 MG TABLET PO SCH ×2 (08:52→20:33)
[2019-04-28] MEDS: ENOXAPARIN SODIUM 40 MG/0.4 ML DISP.SYRIN SQ SCH (08:58)
[2019-04-28] MEDS ORDERED: POTASSIUM CHLORIDE 20 MEQ TAB.PRT.SR PO ONE ×2 (09:15→13:00)
[2019-04-28] MEDS ORDERED: POTASSIUM CHLORIDE 20 MEQ POWDER PACKET PO ONE (10:15)
[2019-04-28 11:15] VITALS: BP 121/71
[2019-04-28] MEDS: MAGNESIUM SULFATE/D5W 100 ML IV SCH ×2 (11:32→12:32)
--- NOTE | 2019-04-28 12:29 | NUR ---
Clinical Pharmacy Note: Vancomycin Dosing per Pharmacy Subjective: Vancomycin IV to continue on this 58 yo male patient for cellulitis Objective: BUN 15/Scr 1.1 WBC 9.1 Temperature 98 Vanco trough level; 15.9 (on 04/25 at 2330) ht 188 cm wt 122 kg Assessment/Plan: Since SCR is elevated , ordered a trough level prior to next dose @ 1600. RX will ck the new level and adjust the dose if necessary. Will continue to monitor renal function & adjust the dose if needed. Will follow daily. Addendum: 04/28/19 at 1653 by IRLANDA MILLER ADM Vancomycin trough was elevated @ 24.7. will hold the dose for now. Will order another level tomorrow morning and will montior with BUN/scr and will re-adjust the dose
[2019-04-28 15:12] VITALS: BP 102/60
--- NOTE | 2019-04-28 18:17 | NUR ---
Patient is awake, alert and verbally responsive. On Oxygen at 0.5LPM via Nasal cannula, saturating at 91%. No complain of Pain or discomfort. Potassium 3.0 was replaced, Magnesium 1.8 was replaced with 2 bags Magnesium Oxide. Still awaiting for replacement rehab/placement. Dr. Cole placed him back to telemetry, Patient is on LifeVest, tolerated well. All needs attended and well. All due medications given as ordered. Kept the bed in lowest position. kept the call light within easy reach. Will endorse to Oncoming Nurse.
[2019-04-28 20:00] VITALS: BP 114/72
[2019-04-28] MEDS: ATORVASTATIN 40 MG TABLET PO SCH (20:33)
[2019-04-28] MEDS: ZOLPIDEM 5 MG TABLET PO PRN (21:48)
[2019-04-28] MEDS ORDERED: METHADONE HCL 10 MG TABLET PO SCH (22:00)
--- NOTE | 2019-04-28 22:00 | NUR ---
Pt requested for additional methadone referred to Dr Fuller and ordered methadone 10 mgx1;
[2019-04-29] VITALS: BP 110/70
--- NOTE | 2019-04-29 01:15 | NUR ---
PT PLACED ON BI/PAP MACHINE WITH FULL MASK 05/09 , 24% - DOING WELL @ 23:55. D RM HALL MONITOR Addendum: 04/29/19 at 0116 by CLARA ABDALLA RT Amended: Links added.
--- NOTE | 2019-04-29 03:30 | NUR ---
pt had en episode of 8 sec v tachycardia; pt asymptompatic, bp 118/65; will closely monitor.
[2019-04-29 04:00] VITALS: BP 119/79
[2019-04-29 06:25] LABS: BASOPHILS # (AUTO) 0.1 K/uL (0.0-8.0); BASOPHILS % (AUTO) 0.6 % (0.0-2.0); EOSINOPHILS # (AUTO) 0.2 K/uL (0.0-0.7); EOSINOPHILS % (AUTO) 1.9 % (0.0-7.0); HEMATOCRIT 44.3 % (36.7-47.1); HEMOGLOBIN 14.4 g/dL (12.5-16.3); LYMPHOCYTES # (AUTO) 2.5 K/uL (20.0-40.0); LYMPHOCYTES % (AUTO) 24.8 % (20.5-51.5); MEAN CORPUSCULAR HEMOGLOBIN 27.9 uug (23.8-33.4); MEAN CORPUSCULAR HGB CONC 33 g/dL (32.5-36.3); MEAN CORPUSCULAR VOLUME 85.7 fL (73.0-96.2); MONOCYTES # (AUTO) 1.2 K/uL (2.0-10.0); MONOCYTES % (AUTO) 12.2 % (0.0-11.0); NEUTROPHILS # (AUTO) 6.1 K/uL (1.8-8.9); NEUTROPHILS % (AUTO) 60.5 % (38.5-71.5); PLATELET COUNT (AUTO) 357 K/uL (152-348); RED BLOOD CELL COUNT(AUTO) 5.17 MIL/uL (4.06-5.63); WHITE BLOOD COUNT (AUTO) 10.1 K/uL (3.6-10.2)
[2019-04-29 06:44] LABS: CREATININE 0.9 mg/dL (0.6-1.3); MAGNESIUM 2.1 mg/dL (1.8-2.4); PHOSPHOROUS 5.2 mg/dL (2.5-4.9); VANCOMYCIN,RANDOM 14.4 ug/mL (18.0-26.0)
--- NOTE | 2019-04-29 07:30 | NUR ---
Received patient in Bed, awake and verbally responsive. No signs of distress noted. On Oxygen at 0.5L/min, sat. 91%. No complain of pain or discomfort at this time. LifeVest in placed. Kept comfortable. Will continue to monitor.
[2019-04-29] MEDS: predniSONE 20 MG TABLET PO SCH (07:59)
[2019-04-29] MEDS: CARVEDILOL 12.5 MG TABLET PO SCH ×2 (08:00→17:47)
[2019-04-29] MEDS: BUMETANIDE 1 MG TABLET PO SCH ×2 (08:58→17:06)
[2019-04-29] MEDS: VANCOMYCIN IV 2,000 MG in IV DEXTROSE 5% 500 ML IV SCH ×2 (08:58→23:20)
[2019-04-29] MEDS: LOSARTAN POTASSIUM 50 MG TABLET PO SCH ×2 (08:59→17:06)
[2019-04-29] MEDS: POTASSIUM CHLORIDE 10 MEQ TAB.PRT.SR PO SCH ×2 (08:59→17:06)
[2019-04-29] MEDS: METHADONE HCL 10 MG TABLET PO SCH (08:59)
[2019-04-29] MEDS: ASPIRIN EC 81 MG TABLET.DR PO SCH (08:59)
[2019-04-29] MEDS: AMLODIPINE 5 MG TABLET PO SCH ×2 (08:59→20:08)
[2019-04-29] MEDS: ENOXAPARIN SODIUM 40 MG/0.4 ML DISP.SYRIN SQ SCH (09:03)
[2019-04-29] MEDS: NICOTINE 14 MG/24HR PATCH TD SCH (09:03)
[2019-04-29 11:45] VITALS: BP 116/66
[2019-04-29 12:04] LABS: ABG BASE EXCESS 10.9 mmol/L; ABG HCO3 38.7 mmol/L; ABG PCO2 64.2 mmHg (35.0-45.0); ABG PH 7.398 (7.350-7.450); ABG PO2 59.9 mmHg (75.0-100.0); ABG SITE RIGHT RADIAL; ABG TOTAL HEMOGLOBIN 15.2 G/dL (13.5-18.0); COHb 1.6 % (0.5-1.5); MetHb 0.2 % (0.0-1.5); O2Hb 89.5 % (94.0-97.0); VENT MODE Nasal Cannula
--- NOTE | 2019-04-29 13:02 | NUR ---
Clinical Pharmacy Note: Vancomycin Dosing per Pharmacy Subjective: Vancomycin IV to continue on this 58 yo male patient for cellulitis Objective: BUN 23/Scr 0.9 WBC 10.1 Temperature 98.6 Vanco trough level; 15.9 (on 04/25 at 2330) Random before 1600 dose 04/28: 24.7 Random am today am labs: 14.4 ht 188 cm wt 122 kg Assessment/Plan: Vancomycin was held d/t supratherapeutic level. Per today's random, will restart with adjusted regimen of vanco 2gm q15h for new estimated trough of 15.8, first dose today at 0900. Will draw trough before 4th scheduled dose (not ordered yet). Will follow renal function and adjust as well if were to become unstable. Otherwise will continue to monitor
[2019-04-29 16:00] VITALS: BP 109/60
--- NOTE | 2019-04-29 18:28 | NUR ---
Patient is awake and verbally responsive. On Oxygen at 0.5LPM via Nasal Cannula. Saturating at 90%. No complain of Pain or discomfort. Remains on LifeVest. All due medication given as ordered. Will Endorse to Oncoming Nurse.
[2019-04-29 19:50] VITALS: BP 105/61
[2019-04-29] MEDS: ATORVASTATIN 40 MG TABLET PO SCH (20:07)
[2019-04-29] MEDS: ZOLPIDEM 5 MG TABLET PO PRN (21:40)
[2019-04-29] MEDS: HYDROCODONE/APAP 5-325MG TABLET PO PRN (21:40)
[2019-04-29] MEDS ORDERED: METHADONE HCL 10 MG TABLET PO ONE (23:00)
[2019-04-30] VITALS: BP 112/67
--- NOTE | 2019-04-30 00:09 | NUR ---
PT PLACED ON BI/PAP @ 23:30 , DOING WELL, SEMI AWAKE, NO SOB NOTED, O2 24% FIO2 - ON BI/PAP . Emily ABDALLA RCP Addendum: 04/30/19 at 0010 by CLARA ABDALLA RT Amended: Links added.
[2019-04-30 04:00] VITALS: BP 114/70
--- NOTE | 2019-04-30 05:20 | NUR ---
Pt rested well in between care; periods of nervousness, and agitation, referred to Dr urban, additional dose of methadone given as ordered; safety maintained; VSS; tolerated vancomycin; continue to monitor; continuwe plan of care.
[2019-04-30 06:31] LABS: BASOPHILS # (AUTO) 0.1 K/uL (0.0-8.0); BASOPHILS % (AUTO) 0.7 % (0.0-2.0); EOSINOPHILS # (AUTO) 0.2 K/uL (0.0-0.7); EOSINOPHILS % (AUTO) 2.1 % (0.0-7.0); HEMATOCRIT 42.9 % (36.7-47.1); HEMOGLOBIN 13.9 g/dL (12.5-16.3); LYMPHOCYTES # (AUTO) 2.3 K/uL (20.0-40.0); LYMPHOCYTES % (AUTO) 26.1 % (20.5-51.5); MEAN CORPUSCULAR HEMOGLOBIN 28.4 uug (23.8-33.4); MEAN CORPUSCULAR HGB CONC 32 g/dL (32.5-36.3); MEAN CORPUSCULAR VOLUME 88.1 fL (73.0-96.2); MONOCYTES # (AUTO) 1.2 K/uL (2.0-10.0); MONOCYTES % (AUTO) 13.6 % (0.0-11.0); NEUTROPHILS # (AUTO) 5.2 K/uL (1.8-8.9); NEUTROPHILS % (AUTO) 57.5 % (38.5-71.5); PLATELET COUNT (AUTO) 295 K/uL (152-348); RED BLOOD CELL COUNT(AUTO) 4.88 MIL/uL (4.06-5.63)
[2019-04-30 06:41] LABS: CREATININE 0.9 mg/dL (0.6-1.3); PHOSPHOROUS 5.1 mg/dL (2.5-4.9); POTASSIUM 3.9 mmol/L (3.5-5.1)
--- NOTE | 2019-04-30 08:00 | NUR ---
Discussed plan of care with patient re: notifying nursing for any SOB and chest pain. Pt agreeable with plan of care. JAZMINE Ext discolored to a bebo red brown skin with +2 edema. Call light is within reach.
--- NOTE | 2019-04-30 08:57 | NUR ---
Clinical Pharmacy Note: Vancomycin Dosing per Pharmacy Subjective: Vancomycin IV to continue on this 58 yo male patient for cellulitis Objective: BUN 29/Scr 0.9 WBC 9.0 Temperature 98.3 Vanco trough level; 15.9 (on 04/25 at 2330) Random before 1600 dose 04/28: 24.7 Random am today am labs: 14.4 ht 188 cm wt 122 kg Assessment/Plan: Will continue same dose of vanco 2gm IV q15h for today. 3rd dose today at 1500. Will draw trough before 4th scheduled dose (ordered for 05/01 at 0530- RN has been informed to hold 0600 dose if vanco trough level above 20 mcg/ml). Pharmacy will review the level in am & adjust the dose if needed. Will continue to monitor
[2019-04-30] MEDS: ASPIRIN EC 81 MG TABLET.DR PO SCH (09:19)
[2019-04-30] MEDS: BUMETANIDE 1 MG TABLET PO SCH ×2 (09:20→18:00)
[2019-04-30] MEDS: predniSONE 20 MG TABLET PO SCH (09:20)
[2019-04-30] MEDS: METHADONE HCL 10 MG TABLET PO SCH (09:20)
[2019-04-30] MEDS: LOSARTAN POTASSIUM 50 MG TABLET PO SCH ×2 (09:21→18:00)
[2019-04-30] MEDS: POTASSIUM CHLORIDE 10 MEQ TAB.PRT.SR PO SCH ×2 (09:21→18:00)
[2019-04-30] MEDS: AMLODIPINE 5 MG TABLET PO SCH ×2 (09:23→21:35)
[2019-04-30] MEDS: CARVEDILOL 12.5 MG TABLET PO SCH ×2 (09:24→18:00)
[2019-04-30] MEDS: NICOTINE 14 MG/24HR PATCH TD SCH (09:24)
[2019-04-30] MEDS: ENOXAPARIN SODIUM 40 MG/0.4 ML DISP.SYRIN SQ SCH (09:25)
[2019-04-30 11:02] VITALS: BP 105/57
[2019-04-30] MEDS: VANCOMYCIN IV 2,000 MG in IV DEXTROSE 5% 500 ML IV SCH (14:18)
[2019-04-30 15:35] VITALS: BP 122/67
[2019-04-30 20:10] VITALS: BP 117/57
[2019-04-30] MEDS: ATORVASTATIN 40 MG TABLET PO SCH (21:36)
[2019-04-30] MEDS: ZOLPIDEM 5 MG TABLET PO PRN (21:36)
[2019-04-30] MEDS ORDERED: METHADONE HCL 10 MG TABLET PO ONE (22:30)
--- NOTE | 2019-04-30 22:40 | NUR ---
Patient noted very anxious and stated he's having heroin withdrawal. Patient requesting for another dose of Methadone. Informed Jonny METAL CNC OPERATOR w/ n.o for 1 time dose of Methadone 10mg PO
[2019-05-01 00:12] VITALS: BP 135/76
--- NOTE | 2019-05-01 02:56 | NUR ---
PT BACK ON BI/PAP MACHINE ST MODE WITH FULL MASK, @ 0200, SEMI RESTLESS, 24% , RR19, GETS ANXIOUS AT TIMES, NURSE AWARE.Emily ABDALLA COMMUNITY MIDWIFE Addendum: 05/01/19 at 0257 by CLARA ABDALLA RT Amended: Links added.
[2019-05-01 04:29] VITALS: BP 131/74
--- NOTE | 2019-05-01 06:30 | NUR ---
Patient slept intermittently. No SOB noted. No c/o pain at this time. SR on Tele monitor. All needs attended. Will endorse accordingly
[2019-05-01] MEDS: VANCOMYCIN IV 2,000 MG in IV DEXTROSE 5% 500 ML IV SCH ×2 (06:52→21:14)
--- NOTE | 2019-05-01 08:00 | NUR ---
Pt A/O x4. Pt is in no acute distress. Call light is within reach.
[2019-05-01] MEDS: NICOTINE 14 MG/24HR PATCH TD SCH (08:24)
[2019-05-01] MEDS: ASPIRIN EC 81 MG TABLET.DR PO SCH (08:24)
[2019-05-01] MEDS: POTASSIUM CHLORIDE 10 MEQ TAB.PRT.SR PO SCH ×2 (08:25→17:21)
[2019-05-01] MEDS: predniSONE 20 MG TABLET PO SCH (08:25)
--- NOTE | 2019-05-01 08:25 | NUR ---
Clinical Pharmacy Note: Vancomycin Dosing per Pharmacy Subjective: Vancomycin IV to continue on this 58 yo male patient for cellulitis Objective: BUN 29/Scr 0.9 (04/30) WBC 9.0 ( Temperature 98.3 Vanco trough level; 15.9 (on 04/25 at 2330) Random before 1600 dose 04/28: 24.7 Random am today am labs: 14.4 Vanco trough level on 05/01 at 0530: 18.9 ht 188 cm wt 122 kg Assessment/Plan: Since vanco trough level is within therapeutic range, will continue same dose of vanco 2gm IV q15h for today. Will monitor renal function & adjust the dose if needed. Will continue to monitor
[2019-05-01] MEDS: METHADONE HCL 10 MG TABLET PO SCH ×2 (08:27→21:02)
[2019-05-01] MEDS: BUMETANIDE 1 MG TABLET PO SCH ×2 (08:27→17:22)
[2019-05-01] MEDS: LOSARTAN POTASSIUM 50 MG TABLET PO SCH ×2 (08:27→17:21)
[2019-05-01] MEDS: AMLODIPINE 5 MG TABLET PO SCH ×2 (08:27→21:02)
[2019-05-01] MEDS: CARVEDILOL 12.5 MG TABLET PO SCH ×2 (08:28→17:22)
[2019-05-01] MEDS: ENOXAPARIN SODIUM 40 MG/0.4 ML DISP.SYRIN SQ SCH (08:28)
[2019-05-01 11:21] VITALS: BP 129/61
[2019-05-01 15:28] VITALS: BP 118/63
[2019-05-01 20:20] VITALS: BP 124/55
[2019-05-01] MEDS: ATORVASTATIN 40 MG TABLET PO SCH (21:01)
[2019-05-01] MEDS: ZOLPIDEM 5 MG TABLET PO PRN (22:01)
[2019-05-02 00:14] VITALS: BP 115/61
[2019-05-02 05:00] VITALS: BP 127/71
--- NOTE | 2019-05-02 06:41 | NUR ---
Patient slept well. No SOB noted. No c/o pain at this time. Refused Bipap. IV on R wrist intact and patent. All needs attended. Will endorse accordingly
[2019-05-02 06:43] LABS: BASOPHILS # (AUTO) 0.1 K/uL (0.0-8.0); BASOPHILS % (AUTO) 0.6 % (0.0-2.0); EOSINOPHILS # (AUTO) 0.1 K/uL (0.0-0.7); EOSINOPHILS % (AUTO) 0.6 % (0.0-7.0); HEMATOCRIT 43.6 % (36.7-47.1); HEMOGLOBIN 14.1 g/dL (12.5-16.3); LYMPHOCYTES # (AUTO) 1.6 K/uL (20.0-40.0); LYMPHOCYTES % (AUTO) 16.8 % (20.5-51.5); MEAN CORPUSCULAR HEMOGLOBIN 28.5 uug (23.8-33.4); MEAN CORPUSCULAR HGB CONC 32 g/dL (32.5-36.3); MONOCYTES # (AUTO) 0.9 K/uL (2.0-10.0); NEUTROPHILS # (AUTO) 6.8 K/uL (1.8-8.9); PLATELET COUNT (AUTO) 296 K/uL (152-348); RED BLOOD CELL COUNT(AUTO) 4.96 MIL/uL (4.06-5.63); WHITE BLOOD COUNT (AUTO) 9.4 K/uL (3.6-10.2)
[2019-05-02 06:55] LABS: CREATININE 0.8 mg/dL (0.6-1.3); PHOSPHOROUS 5.4 mg/dL (2.5-4.9); POTASSIUM 3.9 mmol/L (3.5-5.1)
--- NOTE | 2019-05-02 08:00 | NUR ---
Encourage pt to not refuse his bipap secondary to elevated CO2. Reinforced importance of using his bipap at night and consequence of elevated CO2. Pt agreeable of using bipap. Called RT for pt to have the bipap machine on. Pt has good appetite for breakfast. Pt cooperative on taking his pills. Call light is within reach.
[2019-05-02 08:20] LABS: ABG BASE EXCESS 12.5 mmol/L; ABG HCO3 40.8 mmol/L; ABG PCO2 67.8 mmHg (35.0-45.0); ABG PH 7.397 (7.350-7.450); ABG PO2 50.4 mmHg (75.0-100.0); ABG SITE RIGHT BRACHIAL; ABG TOTAL HEMOGLOBIN 15.4 G/dL (13.5-18.0); COHb 1.9 % (0.5-1.5); MetHb 0.2 % (0.0-1.5); O2Hb 83.6 % (94.0-97.0); VENT MODE Nasal Cannula
[2019-05-02] MEDS: NICOTINE 14 MG/24HR PATCH TD SCH (08:27)
[2019-05-02] MEDS: POTASSIUM CHLORIDE 10 MEQ TAB.PRT.SR PO SCH ×2 (08:28→16:21)
[2019-05-02] MEDS: BUMETANIDE 1 MG TABLET PO SCH ×2 (08:28→16:22)
[2019-05-02] MEDS: ASPIRIN EC 81 MG TABLET.DR PO SCH (08:28)
[2019-05-02] MEDS: METHADONE HCL 10 MG TABLET PO SCH ×2 (08:28→22:03)
[2019-05-02] MEDS: ENOXAPARIN SODIUM 40 MG/0.4 ML DISP.SYRIN SQ SCH (08:29)
[2019-05-02] MEDS: LOSARTAN POTASSIUM 50 MG TABLET PO SCH ×2 (08:29→16:22)
[2019-05-02] MEDS: CARVEDILOL 12.5 MG TABLET PO SCH ×2 (08:30→16:23)
[2019-05-02] MEDS: predniSONE 20 MG TABLET PO SCH (08:30)
[2019-05-02] MEDS: AMLODIPINE 5 MG TABLET PO SCH ×2 (08:30→22:02)
[2019-05-02 11:09] VITALS: BP 101/53
[2019-05-02] MEDS: VANCOMYCIN IV 2,000 MG in IV DEXTROSE 5% 500 ML IV SCH (11:58)
--- NOTE | 2019-05-02 12:24 | NUR ---
Clinical Pharmacy Note: Vancomycin Dosing per Pharmacy Subjective: Vancomycin IV to continue on this 58 yo male patient for cellulitis Objective: BUN 28/Scr 0.8 WBC 9.4 Temperature 98.5 Vanco trough level; 15.9 (on 04/25 at 2330) Random before 1600 dose 12: 24.7 Random am today am labs: 14.4 Vanco trough level on 05/01 at 0530: 18.9 ht 188 cm wt 122 kg Assessment/Plan: Since renal function is stable, will continue same dose of vanco 2gm IV q15h for today. Will monitor renal function & adjust the dose if needed. Will continue to monitor
[2019-05-02] MEDS ORDERED: POTASSIUM CHLORIDE 20 MEQ TAB.PRT.SR PO ONE (12:30)
--- NOTE | 2019-05-02 13:00 | NUR ---
Pt had good appetite for lunch. RT started pt on bipap while sleeping.
[2019-05-02 15:17] VITALS: BP 102/56
--- NOTE | 2019-05-02 17:28 | NUR ---
Pt off bipap had good nap. Pt walked around hallway x2 got o2 sat after with result of 91% on r/a.
--- NOTE | 2019-05-02 19:40 | NUR ---
PATIENT ALERT ORIENTED, NO SOB NO CHEST PAIN. PATIENT ON TELE MONITOR SINUS RHYTHM AT THIS TIME. PATIENT HAS NO COMPLAIN OF PAIN, AMBULATE IN THE HALLWAYS. PATIENT ON LIFE VEST, CONT TO MONITOR.
[2019-05-02 20:29] VITALS: BP 112/53
[2019-05-02] MEDS: ATORVASTATIN 40 MG TABLET PO SCH (22:02)
[2019-05-02] MEDS: ZOLPIDEM 5 MG TABLET PO PRN (22:30)
[2019-05-03] VITALS: BP 122/64
--- NOTE | 2019-05-03 | NUR ---
PT PLACED ON BIPAP WITH ORDERED SETTINGS. NO SIGNS OF RESPIRATORY DISTRESS NOTED. NURSING INFORMED. ALARMS ARE ON AND AUDIBLE. WILL CONTINUE TO MONITOR.
[2019-05-03] MEDS: VANCOMYCIN IV 2,000 MG in IV DEXTROSE 5% 500 ML IV SCH ×2 (03:28→17:34)
[2019-05-03 04:00] VITALS: BP 125/71
--- NOTE | 2019-05-03 05:42 | NUR ---
PATIENT ALERT ORIENTED, NO SOB NO CHEST PAIN, PATIENT HAS NO COMPLAIN OF PAIN NOR DISCOMFORT. PATIENT CONT ON METHADONE ORDERED WITH EFFECTIVE RESULTS, PATIENT WEARS BIPAP FOR 4 HOURS WHILE ASLEEP. CONT ON VANCO IV ABX WITH NO ADVERSE REACTION NOTED. CONT TO MONITOR.
[2019-05-03 06:42] LABS: BASOPHILS % (AUTO) 0.5 % (0.0-2.0); EOSINOPHILS # (AUTO) 0.1 K/uL (0.0-0.7); EOSINOPHILS % (AUTO) 0.5 % (0.0-7.0); HEMATOCRIT 42.8 % (36.7-47.1); HEMOGLOBIN 13.8 g/dL (12.5-16.3); LYMPHOCYTES # (AUTO) 2.1 K/uL (20.0-40.0); LYMPHOCYTES % (AUTO) 19.8 % (20.5-51.5); MEAN CORPUSCULAR HEMOGLOBIN 28.3 uug (23.8-33.4); MEAN CORPUSCULAR HGB CONC 32 g/dL (32.5-36.3); MEAN CORPUSCULAR VOLUME 87.5 fL (73.0-96.2); MONOCYTES # (AUTO) 0.9 K/uL (2.0-10.0); MONOCYTES % (AUTO) 8.6 % (0.0-11.0); NEUTROPHILS # (AUTO) 7.5 K/uL (1.8-8.9); NEUTROPHILS % (AUTO) 70.6 % (38.5-71.5); PLATELET COUNT (AUTO) 276 K/uL (152-348); RED BLOOD CELL COUNT(AUTO) 4.89 MIL/uL (4.06-5.63); WHITE BLOOD COUNT (AUTO) 10.6 K/uL (3.6-10.2)
--- NOTE | 2019-05-03 07:10 | NUR ---
RECEIVED PATIENT RESTING / SLEEPING IN BED. NO ACUTE DISTRESS NOTED. BED IN LOWEST POSITION, SIDE RAILS UP X2, CALL LIGHT WITHIN REACH. WILL CONTINUE TO MONITOR.
[2019-05-03 07:17] LABS: CREATININE 0.9 mg/dL (0.6-1.3); PHOSPHOROUS 4.3 mg/dL (2.5-4.9); POTASSIUM 3.3 mmol/L (3.5-5.1)
[2019-05-03] MEDS: ASPIRIN EC 81 MG TABLET.DR PO SCH (08:31)
[2019-05-03] MEDS: BUMETANIDE 1 MG TABLET PO SCH ×2 (08:31→17:33)
[2019-05-03] MEDS: POTASSIUM CHLORIDE 10 MEQ TAB.PRT.SR PO SCH ×2 (08:31→17:33)
[2019-05-03] MEDS: predniSONE 20 MG TABLET PO SCH (08:31)
[2019-05-03] MEDS: CARVEDILOL 12.5 MG TABLET PO SCH ×2 (08:33→17:34)
[2019-05-03] MEDS: AMLODIPINE 5 MG TABLET PO SCH ×2 (08:33→20:20)
[2019-05-03] MEDS: METHADONE HCL 10 MG TABLET PO SCH ×2 (08:34→21:04)
[2019-05-03] MEDS: LOSARTAN POTASSIUM 50 MG TABLET PO SCH ×2 (08:34→17:33)
[2019-05-03] MEDS: ENOXAPARIN SODIUM 40 MG/0.4 ML DISP.SYRIN SQ SCH (08:35)
[2019-05-03] MEDS: NICOTINE 14 MG/24HR PATCH TD SCH (08:36)
--- NOTE | 2019-05-03 11:01 | NUR ---
Clinical Pharmacy Note: Vancomycin Dosing per Pharmacy Subjective: Vancomycin IV to continue on this 58 yo male patient for cellulitis Objective: BUN 33/Scr 0.9 WBC 10.6 Temperature 98.7 Vanco trough level; 15.9 (on 04/25 at 2330) Random before 1600 dose 04/28: 24.7 Random am today am labs: 14.4 Vanco trough level on 05/01 at 0530: 18.9 ht 188 cm wt 122 kg Assessment/Plan: Since renal function is stable, will continue same dose of vanco 2gm IV q15h for today. Will monitor renal function & adjust the dose if needed. Will continue to monitor
[2019-05-03 11:20] VITALS: BP 105/55
[2019-05-03] MEDS: POTASSIUM CHLORIDE 20 MEQ TAB.PRT.SR PO SCH ×2 (12:18→16:09)
[2019-05-03 16:06] VITALS: BP 117/70
--- NOTE | 2019-05-03 18:30 | NUR ---
Patient is alert and verbally responsive. Able to make needs known. No respiratory or acute distress. No complaints of pain at this time. Patient able to ambulate. Patient is tele sinus rhythm at this time. Also has life vest on. Received all due medications and tolerated well. Patient has ongoing IV Vancomycin at this time. No adverse reactions due to Vancomycin noted. Will endorse to following shift for continuity of care. All needs attended.
--- NOTE | 2019-05-03 19:30 | NUR ---
Received patient awake and alert in bed, A/Ox3. No distress noted. Complains of generalized pain, no complaints of SOB. IV antibiotic running on the right forearm, no s/s of infection or infiltration noted. Safety measures initiated. Bed is low and locked, call light within reach. Will continue to monitor.
[2019-05-03 20:15] VITALS: BP 129/63
[2019-05-03] MEDS: ATORVASTATIN 40 MG TABLET PO SCH (20:21)
[2019-05-03] MEDS: ZOLPIDEM 5 MG TABLET PO PRN (21:47)
[2019-05-04] VITALS: BP 115/68
[2019-05-04 04:00] VITALS: BP 122/78
[2019-05-04 06:38] LABS: BASOPHILS % (AUTO) 0.5 % (0.0-2.0); EOSINOPHILS # (AUTO) 0.1 K/uL (0.0-0.7); HEMATOCRIT 42.5 % (36.7-47.1); HEMOGLOBIN 13.5 g/dL (12.5-16.3); LYMPHOCYTES # (AUTO) 1.7 K/uL (20.0-40.0); LYMPHOCYTES % (AUTO) 18.2 % (20.5-51.5); MEAN CORPUSCULAR HEMOGLOBIN 27.7 uug (23.8-33.4); MEAN CORPUSCULAR HGB CONC 32 g/dL (32.5-36.3); MEAN CORPUSCULAR VOLUME 86.8 fL (73.0-96.2); MONOCYTES # (AUTO) 0.9 K/uL (2.0-10.0); MONOCYTES % (AUTO) 9.8 % (0.0-11.0); NEUTROPHILS # (AUTO) 6.7 K/uL (1.8-8.9); NEUTROPHILS % (AUTO) 70.5 % (38.5-71.5); PLATELET COUNT (AUTO) 296 K/uL (152-348); RED BLOOD CELL COUNT(AUTO) 4.89 MIL/uL (4.06-5.63); WHITE BLOOD COUNT (AUTO) 9.5 K/uL (3.6-10.2)
[2019-05-04 06:58] LABS: CREATININE 0.7 mg/dL (0.6-1.3); MAGNESIUM 1.9 mg/dL (1.8-2.4); PHOSPHOROUS 4.1 mg/dL (2.5-4.9); POTASSIUM 3.9 mmol/L (3.5-5.1)
--- NOTE | 2019-05-04 07:10 | NUR ---
Received patient in bed, asleep, in no acute distress. Patient has BIPAP on, tolerating well. Bed at lowest position with side rails up x 2. Call light within reach. Will continue to monitor.
[2019-05-04] MEDS: CARVEDILOL 12.5 MG TABLET PO SCH ×2 (08:00→17:47)
[2019-05-04] MEDS: NICOTINE 14 MG/24HR PATCH TD SCH (09:00)
[2019-05-04] MEDS: VANCOMYCIN IV 2,000 MG in IV DEXTROSE 5% 500 ML IV SCH (09:19)
[2019-05-04] MEDS: BUMETANIDE 1 MG TABLET PO SCH ×2 (09:19→17:45)
[2019-05-04] MEDS: predniSONE 20 MG TABLET PO SCH (09:19)
[2019-05-04] MEDS: LOSARTAN POTASSIUM 50 MG TABLET PO SCH ×2 (09:20→17:45)
[2019-05-04] MEDS: METHADONE HCL 10 MG TABLET PO SCH ×2 (09:21→22:04)
[2019-05-04] MEDS: ASPIRIN EC 81 MG TABLET.DR PO SCH (09:21)
[2019-05-04] MEDS: POTASSIUM CHLORIDE 10 MEQ TAB.PRT.SR PO SCH ×2 (09:22→17:46)
[2019-05-04] MEDS: AMLODIPINE 5 MG TABLET PO SCH ×2 (09:22→20:32)
[2019-05-04] MEDS: ENOXAPARIN SODIUM 40 MG/0.4 ML DISP.SYRIN SQ SCH (09:23)
[2019-05-04 11:56] VITALS: BP 106/55
--- NOTE | 2019-05-04 12:32 | NUR ---
Clinical Pharmacy Note: Vancomycin Dosing per Pharmacy Subjective: Vancomycin IV to continue on this 58 yo male patient for cellulitis Objective: BUN 30/Scr 0.7 WBC 9.5 Temperature 98.2 Vanco trough level; 15.9 (on 04/25 at 2330) Random before 1600 dose 12: 24.7 Random am today am labs: 14.4 Vanco trough level on 05/01 at 0530: 18.9 ht 188 cm wt 122 kg Assessment/Plan: Since renal function is stable, will continue same dose of vanco 2gm IV q15h for today. Will monitor renal function & adjust the dose if needed. Will continue to monitor
--- NOTE | 2019-05-04 18:16 | NUR ---
Patient is alert and verbally responsive. Can make needs known. Awake in bed. Patient received due meds, tolerated well. Patient complained of pain this morning and received pain medication as ordered. Pain relief noted. Patient is ambulatory, has life vest on. Per tele monitoring specialist, patient sinus graham with PVCs. Patient asymptomatic. Received IV Vanco per MD order at right forearm peripheral line. Peripheral line intact with no infiltration. No adverse reactions from IV ATB. Patient's call light within reach, bed wheels locked and bed at lowest position. Needs attended. Will endorse to following shift for continuity of care.
--- NOTE | 2019-05-04 19:30 | NUR ---
Received patient awake and alert in bed, no distress noted. No complaints of pain at this time, no complaints of SOB. Visitor at bedside. Heplock on right forearm is intact and patent. Safety measures initiated. Bed is low and locked, call light within reach. Will continue to monitor.
[2019-05-04 20:04] VITALS: BP 130/69
[2019-05-04] MEDS: ATORVASTATIN 40 MG TABLET PO SCH (20:32)
[2019-05-04] MEDS: DOXYCYCLINE HYCLATE 100 MG TABLET PO SCH (22:03)
--- NOTE | 2019-05-04 23:15 | NUR ---
Report given to MASON Mars for continuity of care.
--- NOTE | 2019-05-04 23:15 | NUR ---
Patient received into care, laying in bed, watching tv. Patient has no complaints of pain or discomfort at this time. BIPAP is by patient's side and nurse reminded patient of importance to use BIPAP during sleeping hours. IV site is patent and intact. All safety and fall precation measures are in place. Call light and personal items are within reach. Will continue to monitor.
[2019-05-05] VITALS: BP 125/72
[2019-05-05 04:00] VITALS: BP 120/65
--- NOTE | 2019-05-05 06:24 | NUR ---
Patient slept intermittently throughout night with no complaints of pain verbalized or observed. Patient expressed inability to sleep completely during night due to worry about current situation. Nurse reassured patient that case management/social work program coordinator is working diligently to address his current concerns and patient seemed to be less restless after talk. All safety and fall precaution measures remain in place. Call light and personal items are within reach at all times.
[2019-05-05 06:43] LABS: BASOPHILS # (AUTO) 0.1 K/uL (0.0-8.0); BASOPHILS % (AUTO) 0.6 % (0.0-2.0); EOSINOPHILS # (AUTO) 0.1 K/uL (0.0-0.7); EOSINOPHILS % (AUTO) 0.9 % (0.0-7.0); HEMATOCRIT 41.7 % (36.7-47.1); HEMOGLOBIN 13.2 g/dL (12.5-16.3); LYMPHOCYTES # (AUTO) 2.1 K/uL (20.0-40.0); LYMPHOCYTES % (AUTO) 21.3 % (20.5-51.5); MEAN CORPUSCULAR HGB CONC 32 g/dL (32.5-36.3); MEAN CORPUSCULAR VOLUME 88.3 fL (73.0-96.2); MONOCYTES # (AUTO) 0.9 K/uL (2.0-10.0); NEUTROPHILS # (AUTO) 6.6 K/uL (1.8-8.9); NEUTROPHILS % (AUTO) 68.2 % (38.5-71.5); PLATELET COUNT (AUTO) 267 K/uL (152-348); RED BLOOD CELL COUNT(AUTO) 4.72 MIL/uL (4.06-5.63); WHITE BLOOD COUNT (AUTO) 9.7 K/uL (3.6-10.2)
[2019-05-05 06:54] LABS: CREATININE 0.7 mg/dL (0.6-1.3); PHOSPHOROUS 4.2 mg/dL (2.5-4.9); POTASSIUM 3.6 mmol/L (3.5-5.1)
--- NOTE | 2019-05-05 07:30 | NUR ---
Sleeping, appears comfortable. On Bipap, not in distress.
[2019-05-05] MEDS: predniSONE 20 MG TABLET PO SCH (08:38)
[2019-05-05] MEDS: CARVEDILOL 12.5 MG TABLET PO SCH ×2 (08:38→17:41)
[2019-05-05] MEDS: BUMETANIDE 1 MG TABLET PO SCH ×2 (08:39→17:40)
[2019-05-05] MEDS: LOSARTAN POTASSIUM 50 MG TABLET PO SCH ×2 (08:39→17:00)
[2019-05-05] MEDS: ASPIRIN EC 81 MG TABLET.DR PO SCH (08:40)
[2019-05-05] MEDS: METHADONE HCL 10 MG TABLET PO SCH ×2 (08:40→21:25)
[2019-05-05] MEDS: AMLODIPINE 5 MG TABLET PO SCH ×2 (08:40→21:24)
[2019-05-05] MEDS: POTASSIUM CHLORIDE 10 MEQ TAB.PRT.SR PO SCH ×2 (08:40→17:40)
[2019-05-05] MEDS: DOXYCYCLINE HYCLATE 100 MG TABLET PO SCH ×2 (08:41→21:24)
[2019-05-05] MEDS: NICOTINE 14 MG/24HR PATCH TD SCH (08:42)
[2019-05-05] MEDS: ENOXAPARIN SODIUM 40 MG/0.4 ML DISP.SYRIN SQ SCH (08:42)
[2019-05-05 10:10] VITALS: BP 118/66
[2019-05-05] MEDS ORDERED: POTASSIUM CHLORIDE 20 MEQ TAB.PRT.SR PO ONE (10:30)
--- NOTE | 2019-05-05 12:25 | NUR ---
Patient had shower; K 3.6, Potassium 40 MEQ given.
--- NOTE | 2019-05-05 18:00 | NUR ---
GUTSAVO spoke with the patient, Brianna and Quita for over 30 minutes regarding the patient's discharge plan. GUSTAVO explained to the patient and his family that there is a possibility of the patient being medically cleared with discharge orders tomorrow, 05/06/19. The patient and family got upset and stated that the patient cannot be discharge to the streets. GUSTAVO clarified that if the patient is medically cleared with discharge orders the patient can still stay at the hospital for placement. The patient confirmed that he is homeless and wants to be placed in a SNF in the [facility] such as the [place]. The patient stated that he has a pending placement in a treatment center with and treatment center's line as with Coreg as his contact. Per Quita: she cannot provide the patient with a place to live however, if the patient requires transportation she is willing to pick out hand the patient. Per Quita: medical should provide transportation if she is not able to. Quita and the patient are aware that the patient's life vest will be required to be turn in once the patient has followed up with the post-discharge appointment and with orders from shahram EDEN.
--- NOTE | 2019-05-05 18:10 | NUR ---
Patient concerned and angry that taking his blood pressure was hurting his arm/hand and he would take off the cuff. Explained but will not listen, BP medication not given
[2019-05-05 20:03] VITALS: BP_SYST 133; BP_SYST 154; BP_DIAS 66; BP_DIAS 76
[2019-05-05] MEDS: ATORVASTATIN 40 MG TABLET PO SCH (21:24)
[2019-05-06 04:00] VITALS: BP 151/85
[2019-05-06] MEDS: hydrALAZINE HCL 25 MG TABLET PO PRN (05:17)
--- NOTE | 2019-05-06 06:04 | NUR ---
B/P NOTED 151/85 PRN B/P MEDICATION ADMINISTERED ORDERED
--- NOTE | 2019-05-06 06:39 | NUR ---
PATIENT AWAKE ON BED. USED BIPAP DURING THE NIGHT. PATIENT C/O PAIN ON THE HAND WHILE TAKING B/P.HE IS REQUESTING TO SPEAK WITH PHYSICIAN. WILL ENDOSRSE TO THE DAY SHIFT
[2019-05-06 06:44] LABS: CREATININE 0.8 mg/dL (0.6-1.3); MAGNESIUM 1.9 mg/dL (1.8-2.4); PHOSPHOROUS 4.5 mg/dL (2.5-4.9); POTASSIUM 3.9 mmol/L (3.5-5.1)
[2019-05-06 06:45] LABS: BASOPHILS # (AUTO) 0.1 K/uL (0.0-8.0); BASOPHILS % (AUTO) 0.6 % (0.0-2.0); EOSINOPHILS # (AUTO) 0.1 K/uL (0.0-0.7); EOSINOPHILS % (AUTO) 0.9 % (0.0-7.0); HEMATOCRIT 41.8 % (36.7-47.1); HEMOGLOBIN 13.3 g/dL (12.5-16.3); LYMPHOCYTES % (AUTO) 22.1 % (20.5-51.5); MEAN CORPUSCULAR HEMOGLOBIN 27.7 uug (23.8-33.4); MEAN CORPUSCULAR HGB CONC 32 g/dL (32.5-36.3); MEAN CORPUSCULAR VOLUME 86.9 fL (73.0-96.2); MONOCYTES # (AUTO) 1.1 K/uL (2.0-10.0); MONOCYTES % (AUTO) 11.9 % (0.0-11.0); NEUTROPHILS # (AUTO) 5.8 K/uL (1.8-8.9); NEUTROPHILS % (AUTO) 64.5 % (38.5-71.5); PLATELET COUNT (AUTO) 302 K/uL (152-348); RED BLOOD CELL COUNT(AUTO) 4.81 MIL/uL (4.06-5.63); WHITE BLOOD COUNT (AUTO) 8.9 K/uL (3.6-10.2)
[2019-05-06] MEDS: ASPIRIN EC 81 MG TABLET.DR PO SCH (09:00)
[2019-05-06] MEDS: BUMETANIDE 1 MG TABLET PO SCH ×2 (09:59→17:23)
[2019-05-06] MEDS: ENOXAPARIN SODIUM 40 MG/0.4 ML DISP.SYRIN SQ SCH (10:00)
[2019-05-06] MEDS: DOXYCYCLINE HYCLATE 100 MG TABLET PO SCH ×2 (10:01→21:45)
[2019-05-06] MEDS: METHADONE HCL 10 MG TABLET PO SCH ×2 (10:02→21:47)
[2019-05-06] MEDS: CARVEDILOL 12.5 MG TABLET PO SCH ×2 (10:02→18:27)
[2019-05-06] MEDS: POTASSIUM CHLORIDE 10 MEQ TAB.PRT.SR PO SCH ×2 (10:02→17:23)
[2019-05-06] MEDS: predniSONE 20 MG TABLET PO SCH (10:02)
[2019-05-06] MEDS: LOSARTAN POTASSIUM 50 MG TABLET PO SCH ×2 (10:02→17:23)
[2019-05-06] MEDS: NICOTINE 14 MG/24HR PATCH TD SCH (10:03)
[2019-05-06] MEDS: AMLODIPINE 5 MG TABLET PO SCH ×2 (10:03→21:47)
[2019-05-06] MEDS ORDERED: POTASSIUM CHLORIDE 20 MEQ TAB.PRT.SR PO ONE (10:30)
[2019-05-06] MEDS: HYDROCODONE/APAP 5-325MG TABLET PO PRN ×2 (17:23→18:27)
[2019-05-06 19:43] VITALS: BP 111/69
--- NOTE | 2019-05-06 21:00 | NUR ---
pt in stable condition, c/o 03/02 pain, declines [place]. Asking for sleeping pill but Ambien was D/c yesterday. No other complaints. Ambulating adlib
[2019-05-06] MEDS: ATORVASTATIN 40 MG TABLET PO SCH (21:45)
[2019-05-07 05:58] VITALS: BP 156/85
[2019-05-07 06:38] LABS: BASOPHILS % (AUTO) 0.5 % (0.0-2.0); EOSINOPHILS # (AUTO) 0.1 K/uL (0.0-0.7); EOSINOPHILS % (AUTO) 0.8 % (0.0-7.0); HEMATOCRIT 42.5 % (36.7-47.1); HEMOGLOBIN 13.5 g/dL (12.5-16.3); LYMPHOCYTES # (AUTO) 2.1 K/uL (20.0-40.0); LYMPHOCYTES % (AUTO) 23.5 % (20.5-51.5); MEAN CORPUSCULAR HEMOGLOBIN 28.4 uug (23.8-33.4); MEAN CORPUSCULAR HGB CONC 32 g/dL (32.5-36.3); MONOCYTES % (AUTO) 11.1 % (0.0-11.0); NEUTROPHILS # (AUTO) 5.8 K/uL (1.8-8.9); NEUTROPHILS % (AUTO) 64.1 % (38.5-71.5); PLATELET COUNT (AUTO) 275 K/uL (152-348); RED BLOOD CELL COUNT(AUTO) 4.77 MIL/uL (4.06-5.63); WHITE BLOOD COUNT (AUTO) 9.1 K/uL (3.6-10.2)
[2019-05-07 06:49] LABS: CREATININE 0.7 mg/dL (0.6-1.3); MAGNESIUM 1.9 mg/dL (1.8-2.4); PHOSPHOROUS 4.8 mg/dL (2.5-4.9); POTASSIUM 3.4 mmol/L (3.5-5.1)
[2019-05-07] MEDS: CARVEDILOL 12.5 MG TABLET PO SCH ×2 (08:00→18:24)
[2019-05-07] MEDS: predniSONE 20 MG TABLET PO SCH (08:00)
[2019-05-07] MEDS: NICOTINE 14 MG/24HR PATCH TD SCH (09:00)
[2019-05-07] MEDS: BUMETANIDE 1 MG TABLET PO SCH ×2 (09:36→17:00)
[2019-05-07] MEDS: DOXYCYCLINE HYCLATE 100 MG TABLET PO SCH ×2 (09:36→20:41)
[2019-05-07] MEDS: POTASSIUM CHLORIDE 10 MEQ TAB.PRT.SR PO SCH ×2 (09:36→17:00)
[2019-05-07] MEDS: ASPIRIN EC 81 MG TABLET.DR PO SCH (09:37)
[2019-05-07] MEDS: LOSARTAN POTASSIUM 50 MG TABLET PO SCH ×2 (09:37→17:00)
[2019-05-07] MEDS: ENOXAPARIN SODIUM 40 MG/0.4 ML DISP.SYRIN SQ SCH (09:43)
[2019-05-07] MEDS: AMLODIPINE 5 MG TABLET PO SCH ×2 (09:48→20:40)
[2019-05-07] MEDS ORDERED: POTASSIUM CHLORIDE 20 MEQ TAB.PRT.SR PO ONE (10:30)
[2019-05-07 12:01] VITALS: BP 119/67
[2019-05-07 15:59] VITALS: BP 139/74
--- NOTE | 2019-05-07 19:15 | NUR ---
RECEIVED PATIENT AWAKE IN BED. IV ON RIGHT FOREARM FLUSHING, PATENT AND INTACT. PATIENT CURRENTLY REQUESTING SLEEP MEDICATION, WILL CONTACT DOCTOR.
[2019-05-07 20:00] VITALS: BP 141/77
[2019-05-07] MEDS: ATORVASTATIN 40 MG TABLET PO SCH (20:41)
[2019-05-07] MEDS: METHADONE HCL 10 MG TABLET PO SCH (20:41)
[2019-05-07] MEDS: ZOLPIDEM 5 MG TABLET PO PRN (21:44)
[2019-05-08] VITALS: BP 133/84
[2019-05-08 04:00] VITALS: BP 153/86
--- NOTE | 2019-05-08 05:22 | NUR ---
NO CHANGE IN PATIENT CONDITION THROUGHOUT THE SHIFT. PATIENT SLEPT WELL WITH BIPAP MACHINE ON, SATURATING AT 100%. IMMEDIATE NEEDS ATTENDED. COMFORT PROVIDED. WILL ENDORSE TO ONCOMING SHIFT.
[2019-05-08 06:25] LABS: CREATININE 0.8 mg/dL (0.6-1.3); PHOSPHOROUS 4.9 mg/dL (2.5-4.9); POTASSIUM 3.7 mmol/L (3.5-5.1)
[2019-05-08 06:40] LABS: THYROID STIMULATING HORMONE 1.388 mIU/mL (0.358-3.740)
[2019-05-08 06:47] LABS: BASOPHILS % (AUTO) 0.4 % (0.0-2.0); EOSINOPHILS # (AUTO) 0.1 K/uL (0.0-0.7); EOSINOPHILS % (AUTO) 0.8 % (0.0-7.0); HEMATOCRIT 41.2 % (36.7-47.1); HEMOGLOBIN 13.3 g/dL (12.5-16.3); LYMPHOCYTES # (AUTO) 1.9 K/uL (20.0-40.0); MEAN CORPUSCULAR HEMOGLOBIN 28.7 uug (23.8-33.4); MEAN CORPUSCULAR HGB CONC 32 g/dL (32.5-36.3); MEAN CORPUSCULAR VOLUME 88.6 fL (73.0-96.2); MONOCYTES # (AUTO) 0.9 K/uL (2.0-10.0); MONOCYTES % (AUTO) 11.3 % (0.0-11.0); NEUTROPHILS # (AUTO) 5.3 K/uL (1.8-8.9); NEUTROPHILS % (AUTO) 64.5 % (38.5-71.5); PLATELET COUNT (AUTO) 274 K/uL (152-348); RED BLOOD CELL COUNT(AUTO) 4.65 MIL/uL (4.06-5.63); WHITE BLOOD COUNT (AUTO) 8.2 K/uL (3.6-10.2)
--- NOTE | 2019-05-08 07:20 | NUR ---
RECEIVED PATIENT AWAKE ALERT AND ORIENTED BUT FORGETFUL DENIES PAIN OR DISCOMFORTS AT THIS TIME ON O2 WITH NO SOB NOTED ASSISTED WITH REPOSITIONING Q2H WITH BLE FLOATED ON PILLOWS CALL LIGHTS AND PERSONAL BELONGINGS PLACED WITHIN EASY REACH MADE COMFORTABLE AND WILL CONTINUE TO OBSERVE.
[2019-05-08] MEDS: DOXYCYCLINE HYCLATE 100 MG TABLET PO SCH ×2 (08:49→20:21)
[2019-05-08] MEDS: POTASSIUM CHLORIDE 10 MEQ TAB.PRT.SR PO SCH ×2 (08:49→17:20)
[2019-05-08] MEDS: BUMETANIDE 1 MG TABLET PO SCH ×2 (08:49→17:20)
[2019-05-08] MEDS: predniSONE 20 MG TABLET PO SCH (08:50)
[2019-05-08] MEDS: ASPIRIN EC 81 MG TABLET.DR PO SCH (08:50)
[2019-05-08] MEDS: AMLODIPINE 5 MG TABLET PO SCH ×2 (08:51→20:21)
[2019-05-08] MEDS: LOSARTAN POTASSIUM 50 MG TABLET PO SCH ×2 (08:51→17:22)
[2019-05-08] MEDS: CARVEDILOL 12.5 MG TABLET PO SCH ×2 (08:51→17:21)
[2019-05-08] MEDS: NICOTINE 14 MG/24HR PATCH TD SCH (09:00)
[2019-05-08] MEDS: ENOXAPARIN SODIUM 40 MG/0.4 ML DISP.SYRIN SQ SCH (09:03)
--- NOTE | 2019-05-08 10:59 | NUR ---
PATIENT SEEN AND EXAMINED BY DR GENAO WITH NEW ORDERS AND NOTED.
[2019-05-08 11:20] VITALS: BP 134/61
[2019-05-08 11:37] VITALS: BP 134/61
[2019-05-08 16:04] VITALS: BP 112/63
--- NOTE | 2019-05-08 18:00 | NUR ---
ALERT ORIENTED COMPLIANT DENIES PAIN OR DISCOMFORTS NOT IN DISTRESS AT THIS TIME
[2019-05-08] MEDS: METHADONE HCL 10 MG TABLET PO SCH (20:21)
[2019-05-08] MEDS: ATORVASTATIN 40 MG TABLET PO SCH (20:21)
[2019-05-08 20:32] VITALS: BP 123/66
[2019-05-08] MEDS: ZOLPIDEM 5 MG TABLET PO PRN (21:38)
[2019-05-09] VITALS: BP 122/65
[2019-05-09 04:00] VITALS: BP 120/82
[2019-05-09 07:58] LABS: BASOPHILS % (AUTO) 0.6 % (0.0-2.0); CREATININE 0.8 mg/dL (0.6-1.3); EOSINOPHILS # (AUTO) 0.1 K/uL (0.0-0.7); EOSINOPHILS % (AUTO) 1.3 % (0.0-7.0); HEMATOCRIT 40.2 % (36.7-47.1); HEMOGLOBIN 12.9 g/dL (12.5-16.3); LYMPHOCYTES # (AUTO) 2.1 K/uL (20.0-40.0); LYMPHOCYTES % (AUTO) 25.1 % (20.5-51.5); MEAN CORPUSCULAR HEMOGLOBIN 28.3 uug (23.8-33.4); MEAN CORPUSCULAR HGB CONC 32 g/dL (32.5-36.3); MEAN CORPUSCULAR VOLUME 88.5 fL (73.0-96.2); MONOCYTES # (AUTO) 0.9 K/uL (2.0-10.0); MONOCYTES % (AUTO) 10.9 % (0.0-11.0); NEUTROPHILS # (AUTO) 5.1 K/uL (1.8-8.9); NEUTROPHILS % (AUTO) 62.1 % (38.5-71.5); PLATELET COUNT (AUTO) 273 K/uL (152-348); POTASSIUM 3.3 mmol/L (3.5-5.1); RED BLOOD CELL COUNT(AUTO) 4.54 MIL/uL (4.06-5.63); WHITE BLOOD COUNT (AUTO) 8.3 K/uL (3.6-10.2)
[2019-05-09] MEDS: BUMETANIDE 1 MG TABLET PO SCH ×2 (08:42→17:27)
[2019-05-09] MEDS: DOXYCYCLINE HYCLATE 100 MG TABLET PO SCH ×2 (08:42→21:33)
[2019-05-09] MEDS: predniSONE 20 MG TABLET PO SCH (08:43)
[2019-05-09] MEDS: ASPIRIN EC 81 MG TABLET.DR PO SCH (08:43)
[2019-05-09] MEDS: AMLODIPINE 5 MG TABLET PO SCH ×2 (08:47→21:33)
[2019-05-09] MEDS: CARVEDILOL 12.5 MG TABLET PO SCH ×2 (08:47→17:27)
[2019-05-09] MEDS: LOSARTAN POTASSIUM 50 MG TABLET PO SCH ×2 (08:47→17:27)
[2019-05-09] MEDS: POTASSIUM CHLORIDE 10 MEQ TAB.PRT.SR PO SCH (08:57)
[2019-05-09] MEDS: NICOTINE 14 MG/24HR PATCH TD SCH (09:00)
[2019-05-09] MEDS: ENOXAPARIN SODIUM 40 MG/0.4 ML DISP.SYRIN SQ SCH (09:05)
--- NOTE | 2019-05-09 10:00 | NUR ---
AWAKE ALERT AND ORIENTED USES O2 ON AND OFF NO SOB AT THIS TIME PATIENT IS COMPLIANT WITH MEDICATIONS AND CARE NOT IN DISTRESS AT THIS TIME WILL CONTINUE TO OBSERVE.
--- NOTE | 2019-05-09 10:37 | NUR ---
DR GENAO HERE TO SEE PATIENT AWARE OF THE LOW POTASSIUM LEVEL STATED WILL REEVALUATE.PATIENT IS ON ROUTINE POTASSIUM AND WAS ALREADY GIVEN.
[2019-05-09] MEDS ORDERED: POTASSIUM CHLORIDE 20 MEQ TAB.PRT.SR PO ONE (10:45)
[2019-05-09 11:03] VITALS: BP 128/54
--- NOTE | 2019-05-09 12:36 | NUR ---
PATIENT IS VERY UPSET STATED THAT HIS METHADONE IS SUPPOSED TO BE TWO TIMES A DAY BUT HIS ORDER IN THE MEDITECH IS ONLY AT BEDTIME PATIENT VERY ARGUMENTATIVE STATED SOMEONE MADE AN ERROR THAT HE ALWAYS TAKES IT TWO TIMES A DAY I SHOWED HIM THE ORDER IN THE EMAR BUT HE DOES NOT BELIEVE STATED HE HAS BEEN TAKING IT ALL ALONG IN THE MORNING AND AT NITE SO I CALLED AND SPOKE WITH GEORGE VERDE RE PATIENTS REQUEST TO CHANGE METHADONE TO TWICE A DAY GEORGE STATED RADHIKA SAW PATIENT TODAY BUT WILL COME BACK TO TALK TO HIM SOON HE CAN PATIENT NOTIFIED.
[2019-05-09 15:24] VITALS: BP 138/78
[2019-05-09] MEDS ORDERED: METHADONE HCL 10 MG TABLET PO ONE (15:45)
--- NOTE | 2019-05-09 15:46 | NUR ---
NEW ORDER FOR METHADONE NOTED FROM GEORGE PLASTIC SURGERY NURSE BUT PATIENT STATED WANTS TO TAKE 2 DOSES OF METHADONE TODAY STATED IF I GAVE HIM A DOSE NOW STILL WANTS A DOSE TONITE SO I CALLED AND NOTIFIED GEORGE WITH ORDER TO START NOW AND STARTING AT 9PM TO GIVE IT Q12H AND NOTED IST DOSE GIVEN AT THIS TIME.
[2019-05-09] MEDS ORDERED: POTASSIUM CHLORIDE 10 MEQ TAB.PRT.SR PO SCH (17:00)
[2019-05-09] MEDS ORDERED: METHADONE HCL 10 MG TABLET PO SCH (17:00)
[2019-05-09] MEDS: POTASSIUM CHLORIDE 20 MEQ TAB.PRT.SR PO SCH (17:27)
--- NOTE | 2019-05-09 17:40 | NUR ---
RESTING STATED FEELS BETTER AFTER TAKING THE METHADONE EATING HIS DINNER IN [place] AND NO C/O NOTED
--- NOTE | 2019-05-09 20:08 | NUR ---
faxed clinicals to [facility] P: FAX: ADDRESS: [facility] [address] [facility] [place] [address]
[2019-05-09 20:20] VITALS: BP 113/59
[2019-05-09] MEDS: METHADONE HCL 10 MG TABLET PO SCH (21:33)
[2019-05-09] MEDS: ATORVASTATIN 40 MG TABLET PO SCH (21:33)
[2019-05-09] MEDS: ZOLPIDEM 5 MG TABLET PO PRN (23:40)
[2019-05-10 06:08] VITALS: BP 119/72
[2019-05-10 06:22] LABS: BASOPHILS # (AUTO) 0.1 K/uL (0.0-8.0); BASOPHILS % (AUTO) 0.7 % (0.0-2.0); EOSINOPHILS # (AUTO) 0.1 K/uL (0.0-0.7); EOSINOPHILS % (AUTO) 1.5 % (0.0-7.0); HEMATOCRIT 40.2 % (36.7-47.1); HEMOGLOBIN 12.7 g/dL (12.5-16.3); LYMPHOCYTES # (AUTO) 2.2 K/uL (20.0-40.0); LYMPHOCYTES % (AUTO) 26.1 % (20.5-51.5); MEAN CORPUSCULAR HEMOGLOBIN 28.1 uug (23.8-33.4); MEAN CORPUSCULAR HGB CONC 32 g/dL (32.5-36.3); MEAN CORPUSCULAR VOLUME 88.6 fL (73.0-96.2); MONOCYTES # (AUTO) 1.1 K/uL (2.0-10.0); MONOCYTES % (AUTO) 13.3 % (0.0-11.0); NEUTROPHILS # (AUTO) 4.8 K/uL (1.8-8.9); NEUTROPHILS % (AUTO) 58.4 % (38.5-71.5); PLATELET COUNT (AUTO) 249 K/uL (152-348); RED BLOOD CELL COUNT(AUTO) 4.53 MIL/uL (4.06-5.63); WHITE BLOOD COUNT (AUTO) 8.3 K/uL (3.6-10.2)
[2019-05-10 06:40] LABS: CREATININE 0.8 mg/dL (0.6-1.3); PHOSPHOROUS 4.9 mg/dL (2.5-4.9); POTASSIUM 3.7 mmol/L (3.5-5.1)
[2019-05-10] MEDS: ASPIRIN EC 81 MG TABLET.DR PO SCH (08:40)
[2019-05-10] MEDS: BUMETANIDE 1 MG TABLET PO SCH ×2 (08:41→16:45)
[2019-05-10] MEDS: POTASSIUM CHLORIDE 20 MEQ TAB.PRT.SR PO SCH ×2 (08:41→16:45)
[2019-05-10] MEDS: DOXYCYCLINE HYCLATE 100 MG TABLET PO SCH ×2 (08:41→21:13)
[2019-05-10] MEDS: predniSONE 20 MG TABLET PO SCH (08:41)
[2019-05-10] MEDS: LOSARTAN POTASSIUM 50 MG TABLET PO SCH ×2 (08:42→16:46)
[2019-05-10] MEDS: METHADONE HCL 10 MG TABLET PO SCH ×2 (08:42→21:14)
[2019-05-10] MEDS: AMLODIPINE 5 MG TABLET PO SCH ×2 (08:43→21:13)
[2019-05-10] MEDS: CARVEDILOL 12.5 MG TABLET PO SCH ×2 (08:45→17:19)
[2019-05-10] MEDS: NICOTINE 14 MG/24HR PATCH TD SCH (08:51)
[2019-05-10] MEDS ORDERED: POTASSIUM CHLORIDE 20 MEQ TAB.PRT.SR PO ONE (11:00)
[2019-05-10 11:43] VITALS: BP 122/66
[2019-05-10 15:45] VITALS: BP 129/67
--- NOTE | 2019-05-10 18:34 | NUR ---
UP AMBULATING IN THE [address] IN [place] DENIES DISCOMFORTS MADE COMFORTABLE.
[2019-05-10 20:03] VITALS: BP 125/68
[2019-05-10] MEDS: ATORVASTATIN 40 MG TABLET PO SCH (21:13)
[2019-05-10] MEDS: ZOLPIDEM 5 MG TABLET PO PRN (23:52)
[2019-05-11] VITALS: BP 145/62
[2019-05-11 05:42] VITALS: BP 123/64
--- NOTE | 2019-05-11 07:10 | NUR ---
RECEIVED PATIENT AWAKE IN BED, ALERT AND ORIENTED. PATIENT DENIES PAIN AND DISCOMFORT. NO ACUTE DISTRESS NOTED. BED IN LOWEST POITION, SIDE RAILS UP X2, CALL LIGHT WITHIN REACH. WILL CONTINUE TO MONITOR.
[2019-05-11] MEDS: ASPIRIN EC 81 MG TABLET.DR PO SCH (08:18)
[2019-05-11] MEDS: METHADONE HCL 10 MG TABLET PO SCH ×2 (08:18→20:57)
[2019-05-11] MEDS: POTASSIUM CHLORIDE 20 MEQ TAB.PRT.SR PO SCH ×2 (08:18→17:37)
[2019-05-11] MEDS: predniSONE 20 MG TABLET PO SCH (08:18)
[2019-05-11] MEDS: BUMETANIDE 1 MG TABLET PO SCH ×2 (08:18→17:37)
[2019-05-11] MEDS: AMLODIPINE 5 MG TABLET PO SCH ×2 (08:19→20:56)
[2019-05-11] MEDS: LOSARTAN POTASSIUM 50 MG TABLET PO SCH ×2 (08:19→17:37)
[2019-05-11] MEDS: CARVEDILOL 12.5 MG TABLET PO SCH ×2 (08:19→17:37)
[2019-05-11] MEDS: NICOTINE 14 MG/24HR PATCH TD SCH (08:20)
[2019-05-11 11:16] VITALS: BP 118/65
--- NOTE | 2019-05-11 12:46 | NUR ---
GUSTAVO called and spoke with Mary Kate from [facility] regarding a quote for placement. Per Mary Kate: she gave a quote for $1,500-$2,000 for board and care but would not have anything available until Renay. GUSTAVO called and left a message with Jocy Huffman from [facility] [Independent Living] @ [phone]. GUSTAVO called and left a message with Chuck Gallagher @ [facility] a FREE Senior Housing Referral Agency @ [phone]. CM called Corrine on the current placement issue and will inquire about additional resources.
--- NOTE | 2019-05-11 13:51 | NUR ---
GUSTAVO called and spoke with Dede from [facility] @ who stated that there are no beds available at this time.
[2019-05-11 15:20] VITALS: BP 108/54
--- NOTE | 2019-05-11 18:25 | NUR ---
PATIENT RESTED INTERMITTENTLY THROUGHOUT DAY. PATIENT AMBULATORY , WALED ON HIS OWN WITH STEADY GAIT. NO ACUTE DISTRESS NOTED. PATIENT DENIES PAIN AND DISCOMFORT. WILL ENDORSE TO ONCOMING NURSE.
[2019-05-11 19:39] VITALS: BP 123/69
--- NOTE | 2019-05-11 20:00 | NUR ---
Patient received into care, sitting in hallway. Patient is alert/oriented x 3 and has no complaints of pain or discomfort at this time. Safety and fall precaution measures are in place. Will continue to monitor and assess.
[2019-05-11] MEDS: ATORVASTATIN 40 MG TABLET PO SCH (20:56)
[2019-05-11] MEDS: ZOLPIDEM 5 MG TABLET PO PRN (23:25)
[2019-05-12 05:08] VITALS: BP 111/63
[2019-05-12 06:35] LABS: CREATININE 0.8 mg/dL (0.6-1.3); PHOSPHOROUS 5.2 mg/dL (2.5-4.9); POTASSIUM 4.1 mmol/L (3.5-5.1)
[2019-05-12 06:38] LABS: BASOPHILS # (AUTO) 0.1 K/uL (0.0-8.0); BASOPHILS % (AUTO) 0.7 % (0.0-2.0); EOSINOPHILS # (AUTO) 0.2 K/uL (0.0-0.7); EOSINOPHILS % (AUTO) 2.3 % (0.0-7.0); HEMATOCRIT 41.7 % (36.7-47.1); HEMOGLOBIN 13.2 g/dL (12.5-16.3); LYMPHOCYTES # (AUTO) 2.5 K/uL (20.0-40.0); LYMPHOCYTES % (AUTO) 31.2 % (20.5-51.5); MEAN CORPUSCULAR HEMOGLOBIN 28.3 uug (23.8-33.4); MEAN CORPUSCULAR HGB CONC 32 g/dL (32.5-36.3); MEAN CORPUSCULAR VOLUME 89.2 fL (73.0-96.2); MONOCYTES # (AUTO) 0.9 K/uL (2.0-10.0); NEUTROPHILS # (AUTO) 4.4 K/uL (1.8-8.9); NEUTROPHILS % (AUTO) 54.8 % (38.5-71.5); PLATELET COUNT (AUTO) 221 K/uL (152-348); RED BLOOD CELL COUNT(AUTO) 4.68 MIL/uL (4.06-5.63); WHITE BLOOD COUNT (AUTO) 8.1 K/uL (3.6-10.2)
--- NOTE | 2019-05-12 07:10 | NUR ---
RECEIVED PATIENT AWAKE AND ALERT IN BED. NO SIGNS OF ACUTE DISTRESS, PATIENT DENIES PAIN AND DISCOMFORT. BED IN LOWEST POSITION, SIDE RAILS UP X2, CALL LIGHT WITHIN REACH. WILL CONTINUE TO MONITOR.
[2019-05-12] MEDS: predniSONE 20 MG TABLET PO SCH (08:18)
[2019-05-12] MEDS: CARVEDILOL 12.5 MG TABLET PO SCH ×2 (08:18→17:16)
[2019-05-12] MEDS: BUMETANIDE 1 MG TABLET PO SCH ×2 (08:18→17:16)
[2019-05-12] MEDS: METHADONE HCL 10 MG TABLET PO SCH (08:19)
[2019-05-12] MEDS: ASPIRIN EC 81 MG TABLET.DR PO SCH (08:19)
[2019-05-12] MEDS: LOSARTAN POTASSIUM 50 MG TABLET PO SCH ×2 (08:19→17:16)
[2019-05-12] MEDS: POTASSIUM CHLORIDE 20 MEQ TAB.PRT.SR PO SCH ×2 (08:19→17:15)
[2019-05-12] MEDS: AMLODIPINE 5 MG TABLET PO SCH (08:19)
[2019-05-12] MEDS: NICOTINE 14 MG/24HR PATCH TD SCH (08:20)
[2019-05-12] MEDS: ALBUTEROL SULFATE 2.5 MG/3 ML NEBU NEB PRN (09:18)
[2019-05-12] MEDS: IPRATROPIUM BROMIDE 0.5 MG/2.5 ML NEBU NEB PRN (09:18)
--- NOTE | 2019-05-12 09:30 | NUR ---
PATIENT REPORTED HARD TIME CATCHING HIS BREATH O2 SATURATION CHECKED SATING AT 97% ON ROOM AIR. CALLED RESPIRATORY AND PATIENT RECEIVED A BREATHING TREATMENT. PATIENT STATES HE FEELS BETTER.
[2019-05-12 11:14] VITALS: BP 105/58
[2019-05-12 15:09] VITALS: BP 127/69
--- NOTE | 2019-05-12 15:27 | NUR ---
GUSTAVO has been in contact with [facility], to help assist with placement for the patient since yesterday 05/11/19 around 1400pm. Per Vero: she believed she could place the patient near his home area by [place]. Per Vero: she asked GUSTAVO to call her back today in the am. GUSTAVO called [facility] who stated that she has found a broad and care in [place] [[address] [place] [address]]. GUSTAVO has been in contact with Corrine in regards to transportation since [facility] will be unable to assess the patient but willing to accept him. GUSTAVO called [facility] and spoke with Raimundo in order to provide a direct transportation to the board and care. Per Raimundo: a direct wheelchair transportation for the patient will cost $460. This quote was relayed to Corrine who approved. GUSTAVO has called the patient's cousin Whitney twice with no answer. GUSTAVO has spoke with the patient who stated that he just found out about placement, GUSTAVO explained to the patient that GUSTAVO has been working on his placement for weeks now and unfortunately sometimes it is a late minute notice. Gustavo informed the patient that three calls where placed today to Abelardo who has not returned a call back. GUSTAVO called and spoke with Brandy from the [facility] @ [phone] and was provided a direct number [phone]. 05/12/19 @ 1545pm GUSTAVO called and spoke with Christ @ [phone] who stated that he is not the one to call for bed availability but has requested detox and residential placement for the patient. Radha will be the spinneret person for bed availability @ [phone]. Radha is from the [facility] who will be the one that will follow up with the patient at the [facility]. GUSTAVO has called Whitney and update her that the facility will be responsible for the patient's first month rent and transportation and that Radha from the [facility] will be in contact with Whitney and the [facility] for placement after that. Whitney is aware and has agreed with discharge plans. GUSTAVO has spoke with the resident regarding Radha and Whitney and the [facility] and transportation. The patient has agreed. Shanell RN is aware of discharge plans and Yaron Liner Inserter is aware and will place DC orders.
[2019-05-12] MEDS ORDERED: PRED20TA PO (16:06)
[2019-05-12] MEDS ORDERED: LOSA50TA39 PO (16:06)
[2019-05-12] MEDS ORDERED: ATOR40TA PO (16:06)
[2019-05-12] MEDS ORDERED: CARV12.52 PO (16:06)
[2019-05-12] MEDS ORDERED: POTA10CA43 PO (16:06)
[2019-05-12] MEDS ORDERED: ASPI81TA31 PO (16:06)
[2019-05-12] MEDS ORDERED: BUME1TAB8 PO (16:06)
[2019-05-12] MEDS ORDERED: ALBU8.5H8 INH (16:06)
[2019-05-12] MEDS ORDERED: AMLO5TAB9 PO (16:06)
[2019-05-12 17:16] VITALS: BP 133/78
[2019-05-13] MEDS ORDERED: predniSONE 20 MG TABLET PO SCH (08:00)
== END 2019-05-12 19:45 | DRG 773 ==
LOC: ER 22:51 → TELE3 04-23 01:30 → TELE-TD3 04-25 12:25 → MEDSURG3 04-27 10:23 → TELE3 04-28 11:38 → MEDSURG3 05-05 10:00
PROVIDERS: ADMIT Hospitalist; ATTEND Registered Nurse
PROC: 5A09357 Assistance with Respiratory Ventilation, Less than 24 Consecutive Hours, Continuous Positive Airway Pressure (ICD-10-PCS; principal; 2019-04-25)
DX: F11.23 Opioid dependence with withdrawal (principal); I21.A1 Myocardial infarction type 2; J96.21 Acute and chronic respiratory failure with hypoxia; I50.43 Acute on chronic combined systolic (congestive) and diastolic (congestive) heart failure; I47.2 Ventricular tachycardia; L03.115 Cellulitis of right lower limb; E87.1 Hypo-osmolality and hyponatremia; E66.2 Morbid (severe) obesity with alveolar hypoventilation; J44.1 Chronic obstructive pulmonary disease with (acute) exacerbation; L03.116 Cellulitis of left lower limb; J96.22 Acute and chronic respiratory failure with hypercapnia; I42.7 Cardiomyopathy due to drug and external agent; I50.82 Biventricular heart failure; F15.23 Other stimulant dependence with withdrawal; Z59.0 Homelessness; E66.9 Obesity, unspecified; Z68.34 Body mass index [BMI] 34.0-34.9, adult; F17.210 Nicotine dependence, cigarettes, uncomplicated; I11.0 Hypertensive heart disease with heart failure; Z68.33 Body mass index [BMI] 33.0-33.9, adult; Z71.3 Dietary counseling and surveillance; E87.6 Hypokalemia; E11.9 Type 2 diabetes mellitus without complications; J98.11 Atelectasis; G89.4 Chronic pain syndrome; Z79.52 Long term (current) use of systemic steroids; Z79.899 Other long term (current) drug therapy; I25.10 Atherosclerotic heart disease of native coronary artery without angina pectoris; N40.0 Benign prostatic hyperplasia without lower urinary tract symptoms; K42.9 Umbilical hernia without obstruction or gangrene
CPT/HCPCS: 36415; 36600; 70030-TC; 71045; 71275; 83735; 84100; 84300; 84443; 84550; 85025; 93005; 93307; 94640; 94660; 94664; A4663; G0378; J1650; J1940; J2060; J3370; J3475; J3480; J3490; J3590; J7050; J7060; J7512; Q9967